=== PATIENT | female | born 1980 | race Two or more races ===

== ENCOUNTER → 2020-02-29 | Outpatient (CLI) | payer MEDICARE, OTHER ==
[~2020-02-29] MED LIST: DENOSUMAB 60 MG/ML 1 ML SYRINGE SQ NR
[2020-02-29 13:17] VITALS: BP 177/71; PULSE 89; RESP 18; TEMP 97.8
== END | disposition home or self-care (01) ==
LOC: PROCWHC3 12:50
PROVIDERS: ATTEND Family Medicine
DX: M81.0 Age-related osteoporosis without current pathological fracture (principal)
CPT/HCPCS: 96372; J0897

== ENCOUNTER → 2020-04-25 | Outpatient (CLI) | payer MEDICARE, OTHER ==
--- NOTE | 2020-05-03 10:50 | MM ---
Reason for exam: additional evaluation requested from prior study. Last mammogram was performed 2 years and 2 months ago. History: Family history of breast cancer in paternal grandmother. Benign excisional biopsy of the right breast, 1991. Took hormonal contraceptives for 9 months. Physical Findings: Nurse Summary: 2cm nodule in the left breast at 12 o'clock (nurse db). MG 3D Diag Mammo W/Cad KATIE Bilateral CC and MLO view(s) were taken. Prior study comparison: February 21, 2018, mammogram, performed at [place]. The breast tissue is heterogeneously dense. This may lower the sensitivity of mammography. Upper outer quadrant grouped and regional calcifications on both sides. Not as well seen on the lateral and magnification lateral views. These results were verbally communicated with the patient and result sheet given to the patient on 04/25/20. ASSESSMENT: Incomplete: need additional imaging evaluation, BI-RAD 0 RECOMMENDATION: Ultrasound of both breasts.
--- NOTE | 2020-05-03 10:53 | USB ---
Reason for exam: additional evaluation requested from abnormal screening. History: Family history of breast cancer in paternal grandmother. Benign excisional biopsy of the right breast, 1991. Took hormonal contraceptives for 9 months. US Breast BILAT Right complete breast ultrasound includes all four quadrants, the retroareolar region and axilla. Finding demonstrates a 0.5 x 0.3 x 0.4cm oval, cystic lesion at 8 o'clock, a 0.3 x 0.3 x 0.2cm oval, cystic lesion at 11 o'clock and a 0.2 x 0.2 x 0.2cm oval, cystic lesion at 12 o'clock. Left complete breast ultrasound includes all four quadrants, the retroareolar region and axilla. Finding demonstrates a 0.3 x 0.3 x 0.3cm oval, cystic lesion at 1 o'clock and a 0.6 x 0.6 x 0.3cm oval, cystic lesion at 3 o'clock. These results were verbally communicated with the patient and result sheet given to the patient on 04/25/20. ASSESSMENT: Benign, BI-RAD 2 RECOMMENDATION: Follow-up diagnostic mammogram of both breasts in 6 months. Manage patient on a clinical basis.
== END | disposition home or self-care (01) ==
LOC: RADMAMWWP 07:20
PROVIDERS: ATTEND Family Medicine
DX: R92.8 Other abnormal and inconclusive findings on diagnostic imaging of breast (principal); Z80.3 Family history of malignant neoplasm of breast
CPT/HCPCS: 77066; 76641; G0279; 77062

== ENCOUNTER 2020-08-25 14:24 | Inpatient (IN) | payer MEDICARE, OTHER ==
[2020-08-25] MEDS ORDERED: SODIUM CHLORIDE 0.9% 1,000 ML IV STA (15:49)
--- NOTE | 2020-08-25 16:25 | ED ---
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 She has a history of both a renal transplant as well as a pancreatic transplant. Saw she also has a history of chronic pain. She is on antirejection medications including tacrolimus. She presents emergency Department complaining of a three-day history of abdominal pain over the site of her renal transplant and suprapubically that she describes as an achy, sharp sensation. Chest discomfort some dysuria as well as hematuria over that time. She denies any vaginal discharge and does not believe that the blood is coming from her vagina either. She denies any diarrhea. Denies any nausea or vomiting. Denies any chest pain, shortness breath. Denies any lightheadedness or weakness. She has no other acute complaints at this time. She is concerned for her renal transplant. [place] - Related Data Home Medications Medication Instructions Recorded Confirmed Aspirin EC [Ecotrin Low Dose] 81 mg PO DAILY 02/29/20 08/25/20 Ergocalciferol (Vitamin D2) 50,000 units PO TH 02/29/20 08/25/20 [Vitamin D2 (50,000 units)] Rosuvastatin [Crestor] 20 mg PO DAILY 02/29/20 08/25/20 Tacrolimus [Envarsus Xr] 3 mg PO DAILY 02/29/20 08/25/20 predniSONE 5 mg PO DAILY 02/29/20 08/25/20 Clotrimazole Cream [Lotrimin Cream] 1 applic TOPICAL DAILY 08/25/20 08/25/20 Denosumab [Prolia] 60 mg SQ Q180D 08/25/20 08/25/20 Famotidine [Pepcid] 20 mg PO BID 08/25/20 08/25/20 Indomethacin [Indocin] 50 mg PO BID 08/25/20 08/25/20 Medroxyprogesterone Acetate 150 mg IM Q84D 08/25/20 08/25/20 [Depo-Provera] Metoprolol Succinate [Toprol XL] 50 mg PO DAILY 08/25/20 08/25/20 Vasepa 1gm 2 gm PO BID 08/25/20 08/25/20 amLODIPine [Norvasc] 5 mg PO DAILY 08/25/20 08/25/20 medroxyPROGESTERone [Provera] 10 mg PO DAILY 08/25/20 08/25/20 Allergies Allergy/AdvReac Type Severity Reaction Status Date / Time ketamine Allergy Anaphylaxis Verified 08/25/20 17:27 lisinopril Allergy Swelling Verified 08/25/20 17:27 sulfamethoxazole AdvReac Unknown Verified 08/25/20 17:27 [From Bactrim] trimethoprim [From Bactrim] AdvReac Unknown Verified 08/25/20 17:27 Review of Systems ROS Statement: Those systems with pertinent positive or pertinent negative responses have been documented in the HPI. Review of Systems: CONST: Denies fever EYES: Denies blurry vision ENT: Denies nasal congestion C/V: Denies Chest pain RESP: Denies shortness of breath GI: Endorses abdominal pain : Endorses dysuria SKIN: Denies rash. MSK: Denies joint pain. NEURO: Denies headache ROS Other: All systems not noted in ROS Statement are negative. Past Medical History Past Medical History: Heart Failure, Dialysis, Eye Disorder, Hyperlipidemia, Hypertension, Renal Disease Additional Past Medical History / Comment(s): osteoporosis History of Any Multi-Drug Resistant Organisms: None Reported Past Surgical History: Appendectomy, Section, Coronary Bypass/CABG, Tubal Ligation Additional Past Surgical History / Comment(s): kidney transplant/cataract surg/fistula with stent placement-rt arm Past Anesthesia/Blood Transfusion Reactions: No Reported Reaction Past Psychological History: No Psychological Hx Reported Smoking Status: Former smoker Past Alcohol Use History: None Reported Past Drug Use History: None Reported - Past Family History Father Family Medical History: Coronary Artery Disease (CAD), Respiratory Disorder General Exam - General Exam Comments Initial Comments: General: Appears in no acute distress. HEAD: Normal with no signs of head trauma. EYES: PERRLA, EOMI, conjunctiva normal, no discharge. ENT: Hearing grossly intact, normal oropharynx. RESPIRATORY: Clear breath sounds bilaterally. No wheezes, rales, or rhonchi. C/V: Regular rate and rhythm. S1 and S2 auscultated, no edema, peripheral pulses 2+ and intact throughout ABD: Abdomen is soft, nondistended. Patient is tender to palpation suprapubic region as well as over her transplanted kidney in the right lower abdomen. There is no guarding. There are no peritoneal signs. EXT: Normal range of motion, no obvious deformity SKIN: No rashes or lesions observed on exposed skin. NEURO: Alert and oriented 4. Limitations: no limitations Course Vital Signs 08/25/20 08/25/20 14:34 19:53 Temperature 98.3 F Pulse Rate 77 75 Respiratory 20 16 Rate Blood Pressure 122/70 140/73 O2 Sat by Pulse 97 99 Oximetry Medical Decision Making - Medical Decision Making Based on the patient's presentation and physical exam, I'm concerned for possible UTI or kidney infection. Patient is still making good urine and therefore I am less concerned for possible renal transplant rejection or pancreas transplant rejection, however cannot rule this out at that time. Therefore broad laboratory studies will be obtained including blood cultures, electrolytes, urinalysis. She will be given a 1 L fluid bolus while she is in the department. She refuses any analgesia at this time. She was in agreement with this plan. Patient's laboratory studies are remarkable for mild leukocytosis of 12.2. Blood cultures are still pending. Electrolytes are relatively unremarkable. Patient's urinalysis is concerning for an infection with bacteria present as well as many wbc's and rbc's. Nitrates are positive as are leukocyte esterase. I spoke with the patient, that I believe this is likely not a rejection and may just be a kidney infection versus UTI, however due to her transplant and history as well as her immunocompromised state, we will admit her to the hospital for IV antibiotics. She was in agreement with this plan. I spoke with the admitting physician, Dr. Russo, who was in agreement with this plan. I consult the infectious disease doctor, Dr. Mac, who recommended we start 2 g cefepime every 8 hours for treatment. This was ordered. She'll be admitted to the hospital for IV antibiotics in serious condition. Transplanted kidney US is still pending at this time. - Lab Data Result diagrams: 08/25/20 16:00 08/25/20 16:00 Lab Results 08/25/20 08/25/20 08/25/20 Range/Units 16:00 16:00 16:00 WBC 12.2 H (3.8-10.6) k/uL RBC 4.48 (3.80-5.40) m/uL Hgb 14.2 (11.4-16.0) gm/dL Hct 41.7 (34.0-46.0) % MCV 92.9 (80.0-100.0) fL MCH 31.6 (25.0-35.0) pg MCHC 34.0 (31.0-37.0) g/dL RDW 13.1 (11.5-15.5) % Plt Count 157 (150-450) k/uL MPV 7.3 Neutrophils % 90 % Lymphocytes % 3 % Monocytes % 5 % Eosinophils % 1 % Basophils % 0 % Neutrophils # 11.0 H (1.3-7.7) k/uL Lymphocytes # 0.4 L (1.0-4.8) k/uL Monocytes # 0.6 (0-1.0) k/uL Eosinophils # 0.1 (0-0.7) k/uL Basophils # 0.0 (0-0.2) k/uL PT 10.4 (9.0-12.0) sec INR 1.0 (<1.2) APTT 19.1 L (22.0-30.0) sec Sodium (137-145) mmol/L Potassium (3.5-5.1) mmol/L Chloride (98-107) mmol/L Carbon Dioxide (22-30) mmol/L Anion Gap mmol/L BUN (7-17) mg/dL Creatinine (0.52-1.04) mg/dL Est GFR (CKD-EPI)AfAm (>60 ml/min/1.73 sqM) Est GFR (CKD-EPI)NonAf (>60 ml/min/1.73 sqM) Glucose (74-99) mg/dL Plasma Lactic Acid Allan (0.7-2.0) mmol/L Calcium (8.4-10.2) mg/dL Total Bilirubin (0.2-1.3) mg/dL AST (14-36) U/L ALT (4-34) U/L Alkaline Phosphatase (38-126) U/L Total Protein (6.3-8.2) g/dL Albumin (3.5-5.0) g/dL Amylase (30-110) U/L Lipase (23-300) U/L Urine Color Yellow Urine Appearance Cloudy H (Clear) Urine pH 6.0 (5.0-8.0) Ur Specific [place] 1.018 (1.001-1.035) Urine Protein 1+ H (Negative) Urine Glucose (UA) Negative (Negative) Urine Ketones Negative (Negative) Urine Blood Large H (Negative) Urine Nitrite Positive H (Negative) Urine Bilirubin Negative (Negative) Urine Urobilinogen <2.0 (<2.0) mg/dL Ur Leukocyte Esterase Large H (Negative) Urine RBC >182 H (0-5) /hpf Urine WBC >182 H (0-5) /hpf Urine WBC Clumps Many H (None) /hpf Ur Squamous Epith Cells 1 (0-4) /hpf Urine Bacteria Moderate H (None) /hpf Urine Mucus Many H (None) /hpf Urine HCG, Qual (Not Detectd) Blood Type Blood Type Confirm Blood Type Recheck Bld Type Recheck Status Antibody Screen Spec Expiration Date 08/25/20 08/25/20 08/25/20 Range/Units 16:00 16:00 16:00 WBC (3.8-10.6) k/uL RBC (3.80-5.40) m/uL Hgb (11.4-16.0) gm/dL Hct (34.0-46.0) % MCV (80.0-100.0) fL MCH (25.0-35.0) pg MCHC (31.0-37.0) g/dL RDW (11.5-15.5) % Plt Count (150-450) k/uL MPV Neutrophils % % Lymphocytes % % Monocytes % % Eosinophils % % Basophils % % Neutrophils # (1.3-7.7) k/uL Lymphocytes # (1.0-4.8) k/uL Monocytes # (0-1.0) k/uL Eosinophils # (0-0.7) k/uL Basophils # (0-0.2) k/uL PT (9.0-12.0) sec INR (<1.2) APTT (22.0-30.0) sec Sodium 139 (137-145) mmol/L Potassium 4.8 (3.5-5.1) mmol/L Chloride 111 H (98-107) mmol/L Carbon Dioxide 19 L (22-30) mmol/L Anion Gap 9 mmol/L BUN 20 H (7-17) mg/dL Creatinine 0.73 (0.52-1.04) mg/dL Est GFR (CKD-EPI)AfAm >90 (>60 ml/min/1.73 sqM) Est GFR (CKD-EPI)NonAf >90 (>60 ml/min/1.73 sqM) Glucose 113 H (74-99) mg/dL Plasma Lactic Acid Allan (0.7-2.0) mmol/L Calcium 9.4 (8.4-10.2) mg/dL Total Bilirubin 2.3 H (0.2-1.3) mg/dL AST 20 (14-36) U/L ALT 14 (4-34) U/L Alkaline Phosphatase 50 (38-126) U/L Total Protein 6.9 (6.3-8.2) g/dL Albumin 4.0 (3.5-5.0) g/dL Amylase 42 (30-110) U/L Lipase 42 (23-300) U/L Urine Color Urine Appearance (Clear) Urine pH (5.0-8.0) Ur Specific [place] (1.001-1.035) Urine Protein (Negative) Urine Glucose (UA) (Negative) Urine Ketones (Negative) Urine Blood (Negative) Urine Nitrite (Negative) Urine Bilirubin (Negative) Urine Urobilinogen (<2.0) mg/dL Ur Leukocyte Esterase (Negative) Urine RBC (0-5) /hpf Urine WBC (0-5) /hpf Urine WBC Clumps (None) /hpf Ur Squamous Epith Cells (0-4) /hpf Urine Bacteria (None) /hpf Urine Mucus (None) /hpf Urine HCG, Qual Not Detected (Not Detectd) Blood Type Blood Type Confirm A Positive Blood Type Recheck Bld Type Recheck Status Antibody Screen Spec Expiration Date 08/25/20 08/25/20 Range/Units 17:29 17:36 WBC (3.8-10.6) k/uL RBC (3.80-5.40) m/uL Hgb (11.4-16.0) gm/dL Hct (34.0-46.0) % MCV (80.0-100.0) fL MCH (25.0-35.0) pg MCHC (31.0-37.0) g/dL RDW (11.5-15.5) % Plt Count (150-450) k/uL MPV Neutrophils % % Lymphocytes % % Monocytes % % Eosinophils % % Basophils % % Neutrophils # (1.3-7.7) k/uL Lymphocytes # (1.0-4.8) k/uL Monocytes # (0-1.0) k/uL Eosinophils # (0-0.7) k/uL Basophils # (0-0.2) k/uL PT (9.0-12.0) sec INR (<1.2) APTT (22.0-30.0) sec Sodium (137-145) mmol/L Potassium (3.5-5.1) mmol/L Chloride (98-107) mmol/L Carbon Dioxide (22-30) mmol/L Anion Gap mmol/L BUN (7-17) mg/dL Creatinine (0.52-1.04) mg/dL Est GFR (CKD-EPI)AfAm (>60 ml/min/1.73 sqM) Est GFR (CKD-EPI)NonAf (>60 ml/min/1.73 sqM) Glucose (74-99) mg/dL Plasma Lactic Acid Allan 0.8 (0.7-2.0) mmol/L Calcium (8.4-10.2) mg/dL Total Bilirubin (0.2-1.3) mg/dL AST (14-36) U/L ALT (4-34) U/L Alkaline Phosphatase (38-126) U/L Total Protein (6.3-8.2) g/dL Albumin (3.5-5.0) g/dL Amylase (30-110) U/L Lipase (23-300) U/L Urine Color Urine Appearance (Clear) Urine pH (5.0-8.0) Ur Specific [place] (1.001-1.035) Urine Protein (Negative) Urine Glucose (UA) (Negative) Urine Ketones (Negative) Urine Blood (Negative) Urine Nitrite (Negative) Urine Bilirubin (Negative) Urine Urobilinogen (<2.0) mg/dL Ur Leukocyte Esterase (Negative) Urine RBC (0-5) /hpf Urine WBC (0-5) /hpf Urine WBC Clumps (None) /hpf Ur Squamous Epith Cells (0-4) /hpf Urine Bacteria (None) /hpf Urine Mucus (None) /hpf Urine HCG, Qual (Not Detectd) Blood Type A Positive Blood Type Confirm Blood Type Recheck No Previous Record Bld Type Recheck Status CABO Indicated Antibody Screen NEGATIVE Spec Expiration Date 08/28/2020 - 2348 Disposition Clinical Impression: Kidney infection, UTI (urinary tract infection), History of renal transplant, History of pancreas transplant, Abdominal pain Disposition: ADMITTED IP TO THIS HOSP Condition: Serious
[2020-08-25 16:34] LABS: Basophils % (A) 0 %; Eosinophils # (A) 0.1 k/uL (0-0.7); Eosinophils % (A) 1 %; HCT 41.7 % (34.0-46.0); HGB 14.2 gm/dL (11.4-16.0); Lymphocytes # (A) 0.4 k/uL (1.0-4.8); Lymphocytes % (A) 3 %; MCH 31.6 pg (25.0-35.0); MCV 92.9 fL (80.0-100.0); Mean Platelet Volume 7.3; Monocytes # (A) 0.6 k/uL (0-1.0); Monocytes % (A) 5 %; Neutrophils % (A) 90 %; Platelet Count 157 k/uL (150-450); RBC 4.48 m/uL (3.80-5.40); RDW 13.1 % (11.5-15.5); WBC 12.2 k/uL (3.8-10.6)
[2020-08-25 16:36] LABS: Appearance,Urine Cloudy (Clear); Bacteria,Urine Moderate /hpf; Bilirubin,Urine Negative (Negative); Blood,Urine Large (Negative); Color,Urine Yellow; Glucose,Urine (UA) Negative (Negative); Ketones,Urine Negative (Negative); Leukocyte Esterase,Urine Large (Negative); Mucus,Urine Many /hpf; Nitrite,Urine Positive (Negative); Protein,Urine 1+ (Negative); RBC,Urine >182 /hpf (0-5); Specific Gravity,Urine 1.018 (1.001-1.035); Squamous Epithelial Cell,Urine 1 /hpf (0-4); Urobilinogen,Urine <2.0 mg/dL (<2.0); WBC,Urine >182 /hpf (0-5)
--- NOTE | 2020-08-25 16:41 | XR ---
EXAMINATION TYPE: XR chest 1V portable DATE OF EXAM: 08/25/2020 COMPARISON: NONE HISTORY: Abdominal pain. Heart failure. TECHNIQUE: Single view FINDINGS: There is no heart failure nor confluent pneumonic infiltrate. Heart size is fairly normal. There are sternal wires. Costophrenic angles are clear. IMPRESSION: No active cardiopulmonary disease. Normal heart. No heart failure seen.
[2020-08-25 16:47] LABS: ALT 14 U/L (4-34); AST 20 U/L (14-36); African American GFR (CKD) >90 (>60 ml/min/1.73 sqM); Alkaline Phosphatase 50 U/L (38-126); Amylase 42 U/L (30-110); Anion Gap 9 mmol/L; Blood Urea Nitrogen 20 mg/dL (7-17); Calcium 9.4 mg/dL (8.4-10.2); Carbon Dioxide 19 mmol/L (22-30); Chloride 111 mmol/L (98-107); Glucose 113 mg/dL (74-99); Lipase 42 U/L (23-300); Non-African American GFR(CKD) >90 (>60 ml/min/1.73 sqM); Potassium 4.8 mmol/L (3.5-5.1); Sodium 139 mmol/L (137-145); Total Bilirubin 2.3 mg/dL (0.2-1.3); Total Protein 6.9 g/dL (6.3-8.2)
[2020-08-25 16:51] LABS: Prothrombin Time 10.4 sec (9.0-12.0)
[2020-08-25 17:14] LABS: Partial Thromboplastin Time 19.1 sec (22.0-30.0)
[2020-08-25] MEDS ORDERED: SODIUM CHLORIDE 0.9% 1,000 ML IV ONE (18:38)
[2020-08-25] MEDS ORDERED: CEFEPIME 2 GM in SODIUM CHLORIDE 0.9% 100 ML IVPB STA (18:43)
[2020-08-25] MEDS ORDERED: ERGOCALCIFEROL 1,250 MCG (50,000 IU) CAPSULE PO SCH (23:00)
--- NOTE | 2020-08-25 23:09 | P.HPIM ---
History of Present Illness H&P Date: 08/25/20 Chief Complaint: abd pain 40 year old female with CAD s/p CABG, DM and ESRD s/p kidney and pancrease transplant patient comes in with 2 day history of lower abd pain and dysuria . she initially had few episodes of diarrhea on Saturday , then developed lower abd pain on Saturday . which kept getting worse and became associated with right lower quadrant abd pain , she has history of appendectomy and Kidney transplant . she started experiencing dysuria and frequent urination, with low grade fever, denies any nausea or vomiting, she continues to have loose bowel movement no bleeding. she is compliant with her antirejection meds. she denies any chest pain , trouble breathing, she denies frequent UTI. in the ED, she was found to have UTI and admitted for further care. Review of Systems Pertinent positives as noted in HPI. All other systems were reviewed and are negative Past Medical History Past Medical History: Heart Failure, Dialysis, Eye Disorder, Hyperlipidemia, Hypertension, Renal Disease Additional Past Medical History / Comment(s): osteoporosis; diabetes Type 1 History of Any Multi-Drug Resistant Organisms: None Reported Past Surgical History: Appendectomy, Section, Coronary Bypass/CABG, Tubal Ligation Additional Past Surgical History / Comment(s): kidney transplant/cataract surg/fistula with stent placement-rt arm; pancreas transplant Past Anesthesia/Blood Transfusion Reactions: No Reported Reaction Past Psychological History: No Psychological Hx Reported Smoking Status: Former smoker Past Alcohol Use History: None Reported Past Drug Use History: None Reported - Past Family History Father Family Medical History: Coronary Artery Disease (CAD), Respiratory Disorder Medications and Allergies Home Medications Medication Instructions Recorded Confirmed Type Aspirin EC [Ecotrin Low Dose] 81 mg PO DAILY 02/29/20 08/25/20 History Ergocalciferol (Vitamin D2) 50,000 units PO TH 02/29/20 08/25/20 History [Vitamin D2 (50,000 units)] Rosuvastatin [Crestor] 20 mg PO DAILY 02/29/20 08/25/20 History Tacrolimus [Envarsus Xr] 3 mg PO DAILY 02/29/20 08/25/20 History predniSONE 5 mg PO DAILY 02/29/20 08/25/20 History Clotrimazole Cream [Lotrimin Cream] 1 applic TOPICAL DAILY 08/25/20 08/25/20 History Denosumab [Prolia] 60 mg SQ Q180D 08/25/20 08/25/20 History Famotidine [Pepcid] 20 mg PO BID 08/25/20 08/25/20 History Indomethacin [Indocin] 50 mg PO BID 08/25/20 08/25/20 History Medroxyprogesterone Acetate 150 mg IM Q84D 08/25/20 08/25/20 History [Depo-Provera] Metoprolol Succinate [Toprol XL] 50 mg PO DAILY 08/25/20 08/25/20 History Vasepa 1gm 2 gm PO BID 08/25/20 08/25/20 History amLODIPine [Norvasc] 5 mg PO DAILY 08/25/20 08/25/20 History medroxyPROGESTERone [Provera] 10 mg PO DAILY 08/25/20 08/25/20 History Allergies Allergy/AdvReac Type Severity Reaction Status Date / Time ketamine Allergy Anaphylaxis Verified 08/25/20 17:27 lisinopril Allergy Swelling Verified 08/25/20 17:27 sulfamethoxazole AdvReac Unknown Verified 08/25/20 17:27 [From Bactrim] trimethoprim [From Bactrim] AdvReac Unknown Verified 08/25/20 17:27 Physical Exam Vitals: Vital Signs Temp Pulse Pulse Resp BP BP Pulse Ox 08/25/20 20:09 98.7 F 77 18 113/70 100 08/25/20 19:53 75 16 140/73 99 08/25/20 14:34 98.3 F 77 20 122/70 97 Intake and Output 08/25/20 08/25/20 08/26/20 14:59 22:59 06:59 Other: Weight 72.575 kg 72.575 kg Constitutional: No acute distress, conversant, pleasant Eyes: Anicteric sclerae, moist conjunctiva, Pupils equal round reactive to light ENMT: NC/AT Oropharynx clear, no erythema, or exudates Neck: Supple, FROM, no masses, or JVD No carotid bruits No thyromegaly Lungs: Clear to auscultation Clear to percussion Normal respiratory effort, no accessory muscle use Cardiovascular: Heart regular in rate and rhythm, No murmurs, gallops, or rubs No peripheral edema Abdominal: Soft Some discomfort to deep palpation over the right lower quadrant, no guarding, rebound or rigidity Abdomen moving with respiration Normoactive bowel sounds No hepatomegaly, No splenomegaly No palpable mass No abdominal wall hernia noted Skin: Normal temperature, tone, texture, turgor No induration No subcutaneous nodules No rash, lesions No ulcers Extremities: Palpable thrill over the right arm AV fistula Muscle wasting of the No digital cyanosis No clubbing Pedal pulses intact and symmetrical Radial pulses intact and symmetrical No calf tenderness Psychiatric: Alert and oriented to person, place and time Appropriate affect fair judgement Neuro Muscles Strength 5/5 in all 4 extremities with weakness over the distal muscle group of left lower extremity with limited range of motion over th e left ankle Sensation to light touch grossly present throughout Cranial nerves II-XII grossly intact No focal sensory deficits Lymphatics: no palpable cervical or supraclavicular , or inguinal lymph nodes Results CBC & Chem 7: 08/25/20 16:00 08/25/20 16:00 Labs: Abnormal Lab Results - Last 24 Hours (Table) 08/25/20 08/25/20 08/25/20 Range/Units 16:00 16:00 16:00 WBC 12.2 H (3.8-10.6) k/uL Neutrophils # 11.0 H (1.3-7.7) k/uL Lymphocytes # 0.4 L (1.0-4.8) k/uL APTT 19.1 L (22.0-30.0) sec Chloride (98-107) mmol/L Carbon Dioxide (22-30) mmol/L BUN (7-17) mg/dL Glucose (74-99) mg/dL Total Bilirubin (0.2-1.3) mg/dL Urine Appearance Cloudy H (Clear) Urine Protein 1+ H (Negative) Urine Blood Large H (Negative) Urine Nitrite Positive H (Negative) Ur Leukocyte Esterase Large H (Negative) Urine RBC >182 H (0-5) /hpf Urine WBC >182 H (0-5) /hpf Urine WBC Clumps Many H (None) /hpf Urine Bacteria Moderate H (None) /hpf Urine Mucus Many H (None) /hpf 08/25/20 Range/Units 16:00 WBC (3.8-10.6) k/uL Neutrophils # (1.3-7.7) k/uL Lymphocytes # (1.0-4.8) k/uL APTT (22.0-30.0) sec Chloride 111 H (98-107) mmol/L Carbon Dioxide 19 L (22-30) mmol/L BUN 20 H (7-17) mg/dL Glucose 113 H (74-99) mg/dL Total Bilirubin 2.3 H (0.2-1.3) mg/dL Urine Appearance (Clear) Urine Protein (Negative) Urine Blood (Negative) Urine Nitrite (Negative) Ur Leukocyte Esterase (Negative) Urine RBC (0-5) /hpf Urine WBC (0-5) /hpf Urine WBC Clumps (None) /hpf Urine Bacteria (None) /hpf Urine Mucus (None) /hpf Assessment and Plan Assessment: UTI 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 Status post kidney and pancreatic transplant History of coronary artery disease status post CABG Attention Plan Follow-up cultures Nephrology consult regarding recommendation of antirejection medications Continue prednisone Hold tacrolimus, check levels in the morning, await nephrology recommendations Monitor renal function ID consultation, patient was started on cefepime IV fluid hydration with normal saline Pain control Avoid nephrotoxic meds CODE STATUS: Full code DVT prophylaxis: [email or web address] Discussed with: Patient, ER, RN Anticipated length of stay > than [address]: Home A total of 75 minutes was spent on the care of this complex patient more than 50% of the time was spent in counseling and care coordination.
[2020-08-26] MEDS: CEFEPIME 2 GM in SODIUM CHLORIDE 0.9% 100 ML IVPB SCH ×3 (03:13→19:42)
[2020-08-26] MEDS: ACETAMINOPHEN TAB 325 MG TAB PO PRN ×2 (03:15→14:08)
[2020-08-26] MEDS ORDERED: LOPERAMIDE 2 MG CAP PO PRN (03:31)
[2020-08-26] MEDS: ONDANSETRON 4 MG/2 ML VIAL IVP PRN ×2 (03:57→19:43)
--- NOTE | 2020-08-26 09:30 | US ---
EXAMINATION TYPE: US renal transplant w dop DATE OF EXAM: 08/26/2020 COMPARISON: NONE CLINICAL HISTORY: Possible infection. Possible UTI EXAM PERFORMED: Grayscale on [facility] kidneys and Doppler duplex and Grayscale imaging of the transplan [place] kidney. EXAM MEASUREMENTS: [place] Right Kidney: 9.0 x 4.0 x 4.0 cm [place] Left Kidney: 9.3 x 4.5 x 3.8 cm Transplant Kidney: 14.4 x 5.9 x 5.3 cm Location of transplanted kidney: RLQ ANATOMY: [place] Right Kidney: Cortical thinning [place] Left Kidney: Cortical thinning Transplant Kidney: Appeared wnl, no evidence of hydro, venous and arterial flow visualized within ki dney and appeared wnl Bladder: wnl Bilateral Jets seen: No IMPRESSION: No evidence of hydronephrosis or nephrolithiasis. No abnormal perinephric fluid collections. [place] k idneys demonstrate findings compatible with chronic medical renal disease.
[2020-08-26 09:31] LABS: Basophils # (A) 0.02 X 10*3/uL (0.00-0.10); Basophils % (A) 0.2 %; Eosinophils # (A) 0.05 X 10*3/uL (0.04-0.35); Eosinophils % (A) 0.4 %; HCT 35.7 % (37.2-46.3); HGB 11.2 g/dL (12.0-15.0); Lymphocytes # (A) 0.45 X 10*3/uL (0.90-5.00); Lymphocytes % (A) 3.9 %; MCH 29.9 pg (27.0-32.0); MCHC 31.4 g/dL (32.0-37.0); MCV 95.5 fL (80.0-97.0); Mean Platelet Volume 10.1 fL (9.5-12.2); Monocytes # (A) 0.78 X 10*3/uL (0.20-1.00); Monocytes % (A) 6.8 %; Neutrophils # (A) 10.09 X 10*3/uL (1.80-7.70); Neutrophils % (A) 88.1 %; Platelet Count 189 X 10*3/uL (140-440); RBC 3.74 X 10*6/uL (4.10-5.20); RDW 13.3 % (11.5-14.5); WBC 11.46 X 10*3/uL (4.50-10.00)
[2020-08-26 09:49] LABS: African American GFR (CKD) 106.9 (60.0-200.0); Albumin 3.6 g/dL (3.80-4.90); Albumin/Globulin Ratio 1.64 (1.60-3.17); Anion Gap 7.2 mmol/L (4.00-12.00); BUN/Creat Ratio 27.5 Ratio (12.00-20.00); Calcium 8.4 mg/dL (8.7-10.3); Carbon Dioxide 17.8 mmol/L (21.6-31.8); Globulin 2.2 g/dL (1.6-3.3); Non-African American GFR(CKD) 92.2 (60.0-200.0); Potassium 4.4 mmol/L (3.5-5.5); Total Bilirubin 1.5 mg/dL (0.2-1.2); Total Protein 5.8 g/dL (6.2-8.2)
[2020-08-26] MEDS: ENOXAPARIN 40 MG/0.4 ML SYRINGE SQ SCH (10:04)
[2020-08-26] MEDS: METOPROLOL SUCCINATE (ER) 50 MG TAB.ER.24H PO SCH (10:05)
[2020-08-26] MEDS: amLODIPine 5 MG TAB PO SCH (10:05)
[2020-08-26] MEDS: predniSONE 5 MG TAB PO SCH (10:05)
[2020-08-26] MEDS: ASPIRIN 81 MG PO SCH (10:05)
[2020-08-26] MEDS: ATORVASTATIN 40 MG TAB PO SCH (10:05)
[2020-08-26] MEDS: FAMOTIDINE 20 MG TAB PO SCH ×2 (10:05→19:43)
[2020-08-26] MEDS: medroxyPROGESTERone 10 MG TABLET PO SCH (11:40)
[2020-08-26] MEDS: NON FORMULARY DRUG (Tacrolimus [Envarsus Xr] 1 MG Tab.Er.24h) PO SCH (13:06)
[2020-08-26] MEDS: LACTATED RINGERS 1,000 ML IV SCH (14:09)
--- NOTE | 2020-08-26 14:34 | CONS ---
CONSULTATION REASON FOR CONSULT: Renal transplant. HISTORY OF PRESENT ILLNESS: Patient is a 40-year-old female with history of type 1 diabetes and end-stage renal disease, status post kidney pancreas transplant in [place] about 2 years ago. The patient was admitted to the hospital with complaints of abdominal pain. She denied any fever. She is noticed to have a urinary tract infection and is currently maintained on antibiotics. She is not aware of her baseline renal function. However, her creatinine is at 0.7 mg/dL. Serum glucose was 103. Patient is maintained on Envarsus, which is tacrolimus along with prednisone. She has history of BK virus infection in the past. Patient did admit to history of diarrhea a few days prior to this urinary tract infection. She denies history of repeated urinary tract infections. PAST MEDICAL HISTORY: Type 1 diabetes, history of end-stage renal disease. Patient had been on hemodialysis for about 2-3 years, hyperlipidemia, CKD mineral bone disorder, currently improved. PAST SURGICAL HISTORY: Appendectomy, , coronary artery bypass surgery, tubal ligation, kidney pancreas transplant, cataract surgery, AV fistula in the right arm. SOCIAL HISTORY: Patient is a former smoker. No history of drug abuse or alcohol abuse. MEDICATIONS: Medications at home included: Aspirin, vitamin D2, Crestor, Envarsus, prednisone, Prolia, Pepcid, Indocin, Depo-Provera, Toprol, Norvasc. ALLERGIES: INCLUDE KETAMINE CAUSES ANAPHYLAXIS, LISINOPRIL, BACTRIM. PHYSICAL EXAMINATION: Patient is currently comfortable, awake, not in any acute distress. Alert, oriented x3. Blood pressure 149/68, heart rate 88 per minute. She is afebrile. Examination of the heart S1, S2. Examination of the lungs, bilateral breath sounds are heard. Abdomen is soft, nontender. Examination lower extremities shows no evidence of edema. She did have a temperature of 100.6 degrees Fahrenheit. [employer] exam grossly intact. LAB: Show sodium of 139, potassium 4.4, chloride is 114, CO2 is 17.8, BUN 22, creatinine 0.8. ASSESSMENT: 1. Status post simultaneous kidney pancreas transplant maintained on Prograf and prednisone. Continue current immunosuppressive medications. 2. Metabolic acidosis associated with IV fluids and use of Prograf, switch IV fluids to Ringer lactate and repeat labs in a.m. 3. Urinary tract infection. Urine culture is pending. Patient is maintained on empiric antibiotics. 4. Type 1 diabetes status post kidney pancreas transplant. PLAN: Continue current immunosuppressive medications. Continue IV fluids. Continue antibiotics and change the IV fluids to Ringer lactate. Thank you for this consultation. We will continue to follow the patient with you during her hospitalization. MARGARITA / SURJIT: [id number] /
--- NOTE | 2020-08-26 17:53 | P.PN ---
Subjective Progress Note Date: 08/26/20 (delayed charges seen at 1030) Principal diagnosis: dysuria Patient is a 40-year-old female status post pancreatic and kidney transplant secondary to type 1 diabetes and renal failure, hypertension, dyslipidemia, and coronary artery disease status post triple vessel bypass who presented to the hospital at the direction of her primary care provider for urinary tract infection symptoms. In the ER her urine was positive for blood, nitrate, red blood cells, and white blood cells. She was noted to have white blood cell count of 12.2, carbon dioxide 19 with a negative anion gap. She was started on Rocephin and admitted for pyelonephritis. She then spiked a fever of 100.6 consistent with sepsis. Nephrology was consulted, Renal ultrasound showed transplanted kidney within normla limits Patient seen and examined at bedside. She reports she had her transplant approximately 2 years ago and has been doing well since. Her transplant was placed in [place]. She has been seen at [facility] nephrology 2 times. She reports no difficulty with her antirejection medications in the past. Now she reports some dysuria, abdominal pain near her graft site, and just not feeling well. General: Ill appearing , no distress, appears at stated age Derm: warm, dry Head: atraumatic, normocephalic, symmetric Eyes: EOMI, no lid lag, anicteric sclera Mouth: no lip lesion, mucus membranes moist Cardiovascular: S1S2 tachy, no murmur, positive posterior tibial pulse bilateral, Lungs: CTA bilateral, no rhonchi, no rales , no accessory muscle use Abdominal: soft, +tender to palpation RLQ, no guarding, no appreciable organomegaly Ext: no gross muscle atrophy, no edema, no contractures Neuro: CN II-XI grossly intact, no focal neuro deficits Psych: Alert, oriented, appropriate affect Acute pyelonephritis with sepsis in an immune compromised patient - rocephin - IVF - Await urine culture S/p pancreas and kidney transplant - nephrology recs - maintain prograft and prednisone Metabolic acidosis - IV fluids transitioned to LR per nephrology - repeat labs in AM Hx of DM 1 s/p pancrease transplant. DVT prophylaxis: SCDs Discussed with: patients, nursing Anticipated discharge: in AM, once culture available Anticipated discharge place: home A total of 45 minutes was spent on the care of this complex patient more than 50% of the time was spent in counseling and care coordination. Objective - Vital Signs Vital signs: Vital Signs Temp 98.3 F 08/26/20 14:52 Pulse 79 08/26/20 14:52 Resp 17 08/26/20 14:52 BP 118/65 08/26/20 14:52 Pulse Ox 98 08/26/20 14:52 Intake & Output 08/25/20 08/26/20 08/26/20 18:59 06:59 18:59 Intake Total 950 416 Output Total 3 Balance 947 416 Weight 72.575 kg 72.575 kg Intake: Intake, IV Titration 950 Amount Cefepime 2 gm In Sodium 100 Chloride 0.9% 100 ml @ 200 mls/hr IVPB ONCE STA Rx#:[id number] Cefepime 2 gm In Sodium 100 Chloride 0.9% 100 ml @ 200 mls/hr IVPB Q8H [facility] Rx#:[id number] Sodium Chloride 0.9% 1, 750 000 ml @ 75 mls/hr IV . [id number] ONE Rx#:[id number] Oral 416 Output: Urine 3 Other: Voiding Method Toilet Toilet # Voids 1 4 # Bowel Movements 1 - Labs CBC & Chem 7: 08/26/20 03:35 08/26/20 03:35 Labs: Abnormal Lab Results - Last 24 Hours (Table) 08/26/20 08/26/20 Range/Units 03:35 03:35 WBC 11.46 H (4.50-10.00) X 10*3/uL RBC 3.74 L (4.10-5.20) X 10*6/uL Hgb 11.2 L (12.0-15.0) g/dL Hct 35.7 L (37.2-46.3) % MCHC 31.4 L (32.0-37.0) g/dL Immature Gran # 0.07 H (0.00-0.04) X 10*3/uL Neutrophils # 10.09 H (1.80-7.70) X 10*3/uL Lymphocytes # 0.45 L (0.90-5.00) X 10*3/uL Chloride 114 H (96-109) mmol/L Carbon Dioxide 17.8 L (21.6-31.8) mmol/L BUN/Creatinine Ratio 27.50 H (12.00-20.00) Ratio Calcium 8.4 L (8.7-10.3) mg/dL Total Bilirubin 1.5 H (0.2-1.2) mg/dL Total Protein 5.8 L (6.2-8.2) g/dL Albumin 3.60 L (3.80-4.90) g/dL Microbiology - Last 24 Hours (Table) 08/25/20 16:00 Urine Culture - Preliminary Urine,Voided
[2020-08-27] MEDS: ACETAMINOPHEN TAB 325 MG TAB PO PRN ×3 (01:26→19:46)
[2020-08-27] MEDS: CEFEPIME 2 GM in SODIUM CHLORIDE 0.9% 100 ML IVPB SCH ×3 (03:05→23:52)
[2020-08-27] MEDS: LACTATED RINGERS 1,000 ML IV SCH ×2 (03:05→19:53)
[2020-08-27] MEDS: ONDANSETRON 4 MG/2 ML VIAL IVP PRN (09:27)
[2020-08-27] MEDS: FAMOTIDINE 20 MG TAB PO SCH ×2 (09:27→19:47)
[2020-08-27] MEDS: ATORVASTATIN 40 MG TAB PO SCH (09:27)
[2020-08-27] MEDS: ASPIRIN 81 MG PO SCH (09:27)
[2020-08-27] MEDS: amLODIPine 5 MG TAB PO SCH (09:27)
[2020-08-27] MEDS: predniSONE 5 MG TAB PO SCH (09:28)
[2020-08-27] MEDS: medroxyPROGESTERone 10 MG TABLET PO SCH (09:28)
[2020-08-27] MEDS: METOPROLOL SUCCINATE (ER) 50 MG TAB.ER.24H PO SCH (09:28)
[2020-08-27] MEDS: ENOXAPARIN 40 MG/0.4 ML SYRINGE SQ SCH (09:28)
[2020-08-27] MEDS: NON FORMULARY DRUG (Tacrolimus [Envarsus Xr] 1 MG Tab.Er.24h) PO SCH (09:28)
--- NOTE | 2020-08-27 10:32 | P.CONS ---
History of Present Illness - Reason for Consult Consult date: 08/26/20 Transplant nephritis Requesting physician: Buzz Saleem - Chief Complaint Abdominal pain x 3 days - History of Present Illness Patient is a 40-year-old female with a past medical history significant for end-stage renal disease in this patient who is status post cadaveric renal and pancreatic transplant done in [place] about 2 years ago, patient presented to [facility] ER yesterday for evaluation of abdominal pain in the right lower quadrant that has been going on for 2 days before presentation to the hospital patient described abdominal pain to be more of a dull aching intensity is about 5-6 out of 10 and no radiation with associated nausea but no vomiting patient abdominal pain was preceded by urinary burning or frequency in the before abdominal pain started patient complaining of fever with some chills with the symptom the patient was evaluated by the ER physician on arrival to the ER patient was afebrile subsequent spike a fever 100.6 F patient did have elevated white count of 12.2 Case was discussed with me by the ER physician patient was empirically started on cefepime pending evaluation patient did have an ultrasound of the kidneys completed this morning with no evidence of any hydronephrosis or renal stone, patient is feeling slightly better as of this morning. Review of Systems Positive point has been mentioned in the HPI rest of the systems are negative Past Medical History Past Medical History: Heart Failure, Dialysis, Eye Disorder, Hyperlipidemia, Hypertension, Renal Disease Additional Past Medical History / Comment(s): osteoporosis History of Any Multi-Drug Resistant Organisms: None Reported Past Surgical History: Appendectomy, Section, Coronary Bypass/CABG, Tubal Ligation Additional Past Surgical History / Comment(s): kidney transplant/cataract surg/fistula with stent placement-rt arm Past Anesthesia/Blood Transfusion Reactions: No Reported Reaction Past Psychological History: No Psychological Hx Reported Smoking Status: Former smoker Past Alcohol Use History: None Reported Past Drug Use History: None Reported - Past Family History Father Family Medical History: Coronary Artery Disease (CAD), Respiratory Disorder Medications and Allergies Home Medications Medication Instructions Recorded Confirmed Type Aspirin EC [Ecotrin Low Dose] 81 mg PO DAILY 02/29/20 08/25/20 History Ergocalciferol (Vitamin D2) 50,000 units PO TH 02/29/20 08/25/20 History [Vitamin D2 (50,000 units)] Rosuvastatin [Crestor] 20 mg PO DAILY 02/29/20 08/25/20 History Tacrolimus [Envarsus Xr] 3 mg PO DAILY 02/29/20 08/25/20 History predniSONE 5 mg PO DAILY 02/29/20 08/25/20 History Clotrimazole Cream [Lotrimin Cream] 1 applic TOPICAL DAILY 08/25/20 08/25/20 History Denosumab [Prolia] 60 mg SQ Q180D 08/25/20 08/25/20 History Famotidine [Pepcid] 20 mg PO BID 08/25/20 08/25/20 History Indomethacin [Indocin] 50 mg PO BID 08/25/20 08/25/20 History Medroxyprogesterone Acetate 150 mg IM Q84D 08/25/20 08/25/20 History [Depo-Provera] Metoprolol Succinate [Toprol XL] 50 mg PO DAILY 08/25/20 08/25/20 History Vasepa 1gm 2 gm PO BID 08/25/20 08/25/20 History amLODIPine [Norvasc] 5 mg PO DAILY 08/25/20 08/25/20 History medroxyPROGESTERone [Provera] 10 mg PO DAILY 08/25/20 08/25/20 History Allergies Allergy/AdvReac Type Severity Reaction Status Date / Time ketamine Allergy Anaphylaxis Verified 08/25/20 17:27 lisinopril Allergy Swelling Verified 08/25/20 17:27 sulfamethoxazole AdvReac Unknown Verified 08/25/20 17:27 [From Bactrim] trimethoprim [From Bactrim] AdvReac Unknown Verified 08/25/20 17:27 Physical Exam Vitals: Vital Signs Temp Pulse Pulse Resp BP BP Pulse Ox 08/26/20 07:00 98.3 F 76 17 127/67 97 08/26/20 01:38 100.6 F H 88 16 149/68 99 08/25/20 20:09 98.7 F 77 18 113/70 100 08/25/20 19:53 75 16 140/73 99 08/25/20 14:34 98.3 F 77 20 122/70 97 Intake and Output 08/25/20 08/26/20 08/26/20 22:59 06:59 14:59 Intake Total 950 Output Total 3 Balance 947 Intake: Intake, IV Titration 950 Amount Cefepime 2 gm In Sodium 100 Chloride 0.9% 100 ml @ 200 mls/hr IVPB ONCE STA Rx#:[id number] Cefepime 2 gm In Sodium 100 Chloride 0.9% 100 ml @ 200 mls/hr IVPB Q8H [facility] Rx#:[id number] Sodium Chloride 0.9% 1, 750 000 ml @ 75 mls/hr IV . [id number] ONE Rx#:[id number] Output: Urine 3 Other: Voiding Method Toilet Toilet # Voids 1 # Bowel Movements 1 Weight 72.575 kg GENERAL DESCRIPTION: Middle-aged female lying in bed, no distress. No tachypnea or accessory muscle of respiration use. HEENT: Shows Pallor , no scleral icterus. Oral mucous membrane is dry. No pharyngeal erythema or thrush NECK: Trachea central, no thyromegaly. LUNGS: Unlabored breathing. Clear to auscultation anteriorly. No wheeze or crackle. HEART: S1, S2, regular rate and rhythm. No loud murmur ABDOMEN: Soft, no tenderness , guarding or rigidity, no organomegaly EXTREMITIES: No edema of feet. SKIN: No rash, no masses palpable. NEUROLOGICAL: The patient is awake, alert, oriented x3, mood and affect normal. Results CBC & Chem 7: 08/26/20 03:35 08/26/20 03:35 Labs: Abnormal Lab Results - Last 24 Hours (Table) 08/25/20 08/25/20 08/25/20 Range/Units 16:00 16:00 16:00 WBC 12.2 H (3.8-10.6) k/uL RBC (4.10-5.20) X 10*6/uL Hgb (12.0-15.0) g/dL Hct (37.2-46.3) % MCHC (32.0-37.0) g/dL Immature Gran # (0.00-0.04) X 10*3/uL Neutrophils # 11.0 H (1.3-7.7) k/uL Lymphocytes # 0.4 L (1.0-4.8) k/uL APTT 19.1 L (22.0-30.0) sec Chloride (98-107) mmol/L Carbon Dioxide (22-30) mmol/L BUN (7-17) mg/dL BUN/Creatinine Ratio (12.00-20.00) Ratio Glucose (74-99) mg/dL Calcium (8.7-10.3) mg/dL Total Bilirubin (0.2-1.3) mg/dL Total Protein (6.2-8.2) g/dL Albumin (3.80-4.90) g/dL Urine Appearance Cloudy H (Clear) Urine Protein 1+ H (Negative) Urine Blood Large H (Negative) Urine Nitrite Positive H (Negative) Ur Leukocyte Esterase Large H (Negative) Urine RBC >182 H (0-5) /hpf Urine WBC >182 H (0-5) /hpf Urine WBC Clumps Many H (None) /hpf Urine Bacteria Moderate H (None) /hpf Urine Mucus Many H (None) /hpf 08/25/20 08/26/20 08/26/20 Range/Units 16:00 03:35 03:35 WBC 11.46 H (3.8-10.6) k/uL RBC 3.74 L (4.10-5.20) X 10*6/uL Hgb 11.2 L (12.0-15.0) g/dL Hct 35.7 L (37.2-46.3) % MCHC 31.4 L (32.0-37.0) g/dL Immature Gran # 0.07 H (0.00-0.04) X 10*3/uL Neutrophils # 10.09 H (1.3-7.7) k/uL Lymphocytes # 0.45 L (1.0-4.8) k/uL APTT (22.0-30.0) sec Chloride 111 H 114 H (98-107) mmol/L Carbon Dioxide 19 L 17.8 L (22-30) mmol/L BUN 20 H (7-17) mg/dL BUN/Creatinine Ratio 27.50 H (12.00-20.00) Ratio Glucose 113 H (74-99) mg/dL Calcium 8.4 L (8.7-10.3) mg/dL Total Bilirubin 2.3 H 1.5 H (0.2-1.3) mg/dL Total Protein 5.8 L (6.2-8.2) g/dL Albumin 3.60 L (3.80-4.90) g/dL Urine Appearance (Clear) Urine Protein (Negative) Urine Blood (Negative) Urine Nitrite (Negative) Ur Leukocyte Esterase (Negative) Urine RBC (0-5) /hpf Urine WBC (0-5) /hpf Urine WBC Clumps (None) /hpf Urine Bacteria (None) /hpf Urine Mucus (None) /hpf Microbiology - Last 24 Hours (Table) 08/25/20 16:00 Urine Culture - Preliminary Urine,Voided Assessment and Plan Assessment: patient presented to hospital with sepsis in this patient who did have a fever elevated white count source is likely transplant nephritis in this patient who did have a pain to the right lower abdominal area with a significantly positive UA and will need to call for the enteric gram-negative with a likely pathogen in this patient who is currently on immunosuppressive medication with concern likely for possible resistant bacteria such as Pseudomonas (1) Sepsis Current Visit: Yes Status: Acute Code(s): A41.9 - SEPSIS, UNSPECIFIED ORGANISM SNOMED Code(s): 51817443 (2) Pyelonephritis Current Visit: Yes Status: Acute Code(s): N12 - TUBULO-INTERSTITIAL NEPHRITIS, NOT SPCF ACUTE OR CHRONIC SNOMED Code(s): 47518727 Plan: 1-cefepime 2 g every 8 hours 2-gentle IV fluid We will follow on clinical condition and cultures to further adjust medication if needed Thank you for this consultation we will follow the patient along with you Time with Patient: Greater than 30
[2020-08-27 11:04] LABS: HCT 35.4 % (34.0-46.0); HGB 11.8 gm/dL (11.4-16.0); MCH 31.5 pg (25.0-35.0); MCHC 33.5 g/dL (31.0-37.0); MCV 94.2 fL (80.0-100.0); Mean Platelet Volume 7.1; Platelet Count 177 k/uL (150-450); RBC 3.76 m/uL (3.80-5.40); RDW 13.2 % (11.5-15.5); WBC 5.4 k/uL (3.8-10.6)
[2020-08-27 11:20] LABS: ALT 12 U/L (4-34); AST 17 U/L (14-36); African American GFR (CKD) >90 (>60 ml/min/1.73 sqM); Albumin 3.2 g/dL (3.5-5.0); Albumin/Globulin Ratio 1.2; Alkaline Phosphatase 42 U/L (38-126); Anion Gap 5 mmol/L; Blood Urea Nitrogen 14 mg/dL (7-17); Calcium 9.9 mg/dL (8.4-10.2); Carbon Dioxide 24 mmol/L (22-30); Chloride 111 mmol/L (98-107); Globulin 2.7 g/dL; Glucose 102 mg/dL (74-99); Non-African American GFR(CKD) >90 (>60 ml/min/1.73 sqM); Potassium 4.2 mmol/L (3.5-5.1); Sodium 140 mmol/L (137-145); Total Protein 5.9 g/dL (6.3-8.2)
--- NOTE | 2020-08-27 15:22 | US ---
EXAMINATION TYPE: US liver DATE OF EXAM: 08/27/2020 COMPARISON: US CLINICAL HISTORY: abdominal pain. RUQ pain radiating to back since recent hospitalization; pancreatic and renal transplant patient 2019 EXAM MEASUREMENTS: Liver Length: 13.8 cm Gallbladder Wall: 0.2 cm CBD: 0.9 cm Right Kidney: 8.2 x 5.0 x 3.7 cm [place] kidney (see recent US for Transplant US images and report. Pancreas: wnl Liver: wnl Gallbladder: multiple small shadowing stones noted in neck and mid gallbladder with some stone mobil ity in LLD position; however neck gallstones still seen in LLD position. Evidence for sonographic Bueno's sign: tender here CBD: abnormally dilated Right Kidney: [place] kidney noted IMPRESSION: Multiple gallstones in the gallbladder neck and in the dependent gallbladder. Large common bile duct probably related to gallbladder dysfunction. Right renal cortical atrophy.
--- NOTE | 2020-08-27 17:03 | P.PN ---
Subjective Progress Note Date: 08/27/20 (lupe charting seen at 0930) Principal diagnosis: dysuria Patient is a 40-year-old female status post pancreatic and kidney transplant secondary to type 1 diabetes and renal failure, hypertension, dyslipidemia, and coronary artery disease status post triple vessel bypass who presented to the hospital at the direction of her primary care provider for urinary tract infection symptoms. In the ER her urine was positive for blood, nitrate, red blood cells, and white blood cells. She was noted to have white blood cell count of 12.2, carbon dioxide 19 with a negative anion gap. She was started on Rocephin and admitted for pyelonephritis. She then spiked a fever of 100.6 consistent with sepsis. Nephrology was consulted, Renal ultrasound showed transplanted kidney within normal limits. Urine culture showed 100,000 gram- negative bacilli. She was seen by infectious disease who appreciated her antibiotic from Rocephin to cefepime with concerns for possible Pseudomonas. Patient seen and examined at bedside. She has developed some right upper quadr ant pain. She is not having any she was her gallbladder in the past. She this is associated with nausea and vomiting as well as not wanting to eat. General: non toxic, no distress, appears at stated age Derm: warm, dry Head: atraumatic, normocephalic, symmetric Eyes: EOMI, no lid lag, anicteric sclera Mouth: no lip lesion, mucus membranes moist Cardiovascular: S1S2 reg, no murmur, positive posterior tibial pulse bilateral, Lungs: CTA bilateral, no rhonchi, no rales , no accessory muscle use Abdominal: soft, tender to palpation right upper quadrant, tender to palpation right lower quadrant,, no guarding, no appreciable organomegaly Ext: no gross muscle atrophy, no edema, no contractures, boot over left ankle Neuro: CN II-XI grossly intact, no focal neuro deficits Psych: Alert, oriented, appropriate affect Pyelonephritis with sepsis in an immunocompromised patient - Infectious disease recommendations appreciated -Continue with cefepime -IV fluids -Await for urine culture finalized Right upper quadrant pain -Check renal ultrasound -Patient did have elevated bilirubin yesterday which has improved -Repeat CMP in a.m. Metabolic acidosis, improved -Secondary to tacrolimus - repeat labs in AM History of renal transplant -Nephrology recommendations -maintain prograft and prednisone Chronic: Diabetes mellitus type 1 status post pancreatic transplant no longer requiring insulin therapy Left Charcot foot Objective - Vital Signs Vital signs: Vital Signs Temp 98.4 F 08/27/20 15:00 Pulse 73 08/27/20 15:00 Resp 16 08/27/20 15:00 BP 116/71 08/27/20 15:00 Pulse Ox 99 08/27/20 15:00 Intake & Output 08/26/20 08/27/20 08/27/20 18:59 06:59 18:59 Intake Total 416 Balance 416 Intake: Oral 416 Other: Voiding Method Toilet Toilet Toilet # Voids 4 1 3 - Labs CBC & Chem 7: 08/27/20 10:30 08/27/20 10:30 Labs: Abnormal Lab Results - Last 24 Hours (Table) 08/27/20 08/27/20 Range/Units 10:30 10:30 RBC 3.76 L (3.80-5.40) m/uL Chloride 111 H (98-107) mmol/L Glucose 102 H (74-99) mg/dL Total Protein 5.9 L (6.3-8.2) g/dL Albumin 3.2 L (3.5-5.0) g/dL Microbiology - Last 24 Hours (Table) 08/26/20 03:35 Blood Culture - Preliminary Blood No Growth after 24 hours 08/25/20 16:00 Urine Culture - Preliminary Urine,Voided Gram Neg Bacilli 08/25/20 17:36 Blood Culture - Preliminary Blood No Growth after 24 hours
--- NOTE | 2020-08-27 18:00 | PN ---
PROGRESS NOTE DATE OF SERVICE: 08/27/2020 REASON FOR FOLLOWUP: Transplant nephritis. INTERVAL HISTORY: The patient is afebrile. The patient is feeling better. Still complaining of some pain in the right lower abdominal area with slight decreased intensity. No chest pain, shortness of breath or cough. PHYSICAL EXAMINATION: Blood pressure 116/71 with a pulse of 73, temperature 98.4, she is 99% on room air. General description is a middle-aged female up in the chair in no distress. Respiratory system: Unlabored breathing, clear to auscultation anteriorly. Heart S1, S2. Regular rate and rhythm. Abdomen is soft, no tenderness. LABS: Hemoglobin is 11.1, white count 5.4, BUN of 14, creatinine 0.75. Urine showing Gram- negative. Blood culture so far negative. 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 Patient is covered with cefepime, to continue while waiting for the culture to finalize and monitor clinical course closely. MMODL / IJN: [id number] /
[2020-08-28] MEDS: DOCUSATE 100 MG CAP PO SCH ×3 (02:34→19:25)
[2020-08-28] MEDS: LACTATED RINGERS 1,000 ML IV SCH ×2 (05:31→09:56)
[2020-08-28] MEDS: CEFEPIME 2 GM in SODIUM CHLORIDE 0.9% 100 ML IVPB SCH ×2 (08:16→16:08)
[2020-08-28] MEDS: ONDANSETRON 4 MG/2 ML VIAL IVP PRN (08:16)
[2020-08-28] MEDS: ENOXAPARIN 40 MG/0.4 ML SYRINGE SQ SCH (08:21)
[2020-08-28] MEDS: predniSONE 5 MG TAB PO SCH (08:22)
[2020-08-28] MEDS: amLODIPine 5 MG TAB PO SCH (08:22)
[2020-08-28] MEDS: ASPIRIN 81 MG PO SCH (08:22)
[2020-08-28] MEDS: FAMOTIDINE 20 MG TAB PO SCH ×2 (08:22→19:25)
[2020-08-28] MEDS: ATORVASTATIN 40 MG TAB PO SCH (08:22)
[2020-08-28] MEDS: METOPROLOL SUCCINATE (ER) 50 MG TAB.ER.24H PO SCH (08:22)
[2020-08-28] MEDS: medroxyPROGESTERone 10 MG TABLET PO SCH (08:23)
[2020-08-28] MEDS: NON FORMULARY DRUG (Tacrolimus [Envarsus Xr] 1 MG Tab.Er.24h) PO SCH (08:25)
--- NOTE | 2020-08-28 09:27 | P.GSCN ---
History of Present Illness Consult date: 08/28/20 History of present illness: 40-year-old female presented to the emergency department with 2 days of lower abdominal pain and dysuria. She also was noted to have leukocytosis along with febrile episodes. Findings were consistent with pyelonephritis with urine cultures being positive for E. coli. Patient is also noted to have a history of pancreatic and kidney transplant approximately 2 years ago in [facility]. This was secondary to type 1 diabetes. She is recently been trying to transfer her care to [facility] in [place]. The patient began complaining of right upper quadrant and right lower quadrant abdominal pain. Secondary to this workup was performed with an ultrasound. Patient is noted to have elevated bilirubin along with gallstones. She complains of right upper quadrant and epigastric soreness. She is also having nausea and vomiting. She is on antibiotics treating her urinary tract infection and pyelonephritis. Review of Systems All systems: negative Past Medical History Past Medical History: Heart Failure, Dialysis, Eye Disorder, Hyperlipidemia, Hypertension, Renal Disease Additional Past Medical History / Comment(s): osteoporosis History of Any Multi-Drug Resistant Organisms: None Reported Past Surgical History: Appendectomy, Section, Coronary Bypass/CABG, Tubal Ligation Additional Past Surgical History / Comment(s): kidney transplant/cataract surg/fistula with stent placement-rt arm Past Anesthesia/Blood Transfusion Reactions: No Reported Reaction Past Psychological History: No Psychological Hx Reported Smoking Status: Former smoker Past Alcohol Use History: None Reported Past Drug Use History: None Reported - Past Family History Father Family Medical History: Coronary Artery Disease (CAD), Respiratory Disorder Medications and Allergies Home Medications Medication Instructions Recorded Confirmed Type Aspirin EC [Ecotrin Low Dose] 81 mg PO DAILY 02/29/20 08/25/20 History Ergocalciferol (Vitamin D2) 50,000 units PO TH 02/29/20 08/25/20 History [Vitamin D2 (50,000 units)] Rosuvastatin [Crestor] 20 mg PO DAILY 02/29/20 08/25/20 History Tacrolimus [Envarsus Xr] 3 mg PO DAILY 02/29/20 08/25/20 History predniSONE 5 mg PO DAILY 02/29/20 08/25/20 History Clotrimazole Cream [Lotrimin Cream] 1 applic TOPICAL DAILY 08/25/20 08/25/20 History Denosumab [Prolia] 60 mg SQ Q180D 08/25/20 08/25/20 History Famotidine [Pepcid] 20 mg PO BID 08/25/20 08/25/20 History Indomethacin [Indocin] 50 mg PO BID 08/25/20 08/25/20 History Medroxyprogesterone Acetate 150 mg IM Q84D 08/25/20 08/25/20 History [Depo-Provera] Metoprolol Succinate [Toprol XL] 50 mg PO DAILY 08/25/20 08/25/20 History Vasepa 1gm 2 gm PO BID 08/25/20 08/25/20 History amLODIPine [Norvasc] 5 mg PO DAILY 08/25/20 08/25/20 History medroxyPROGESTERone [Provera] 10 mg PO DAILY 08/25/20 08/25/20 History Allergies Allergy/AdvReac Type Severity Reaction Status Date / Time ketamine Allergy Anaphylaxis Verified 08/25/20 17:27 lisinopril Allergy Swelling Verified 08/25/20 17:27 sulfamethoxazole AdvReac Unknown Verified 08/25/20 17:27 [From Bactrim] trimethoprim [From Bactrim] AdvReac Unknown Verified 08/25/20 17:27 Surgical - Exam Osteopathic Statement: *. No significant issues noted on an osteopathic structural exam other than those noted in the History and Physical/Consult. Vital Signs Temp Pulse Resp BP Pulse Ox 98.3 F 77 20 122/70 97 08/25/20 14:34 08/25/20 14:34 08/25/20 14:34 08/25/20 14:34 08/25/20 14:34 - General no distress - Eyes normal ocular movement - ENT no hearing loss - Neck trachea midline - Respiratory normal respiratory effort - Abdomen Soft, tenderness to palpation in the epigastrium right upper quadrant and right lower quadrant, nondistended, no rebound, no guarding Abdomen: soft Results - Labs 08/27/20 10:30 08/27/20 10:30 Abnormal Lab Results - Last 24 Hours (Table) 08/27/20 08/27/20 Range/Units 10:30 10:30 RBC 3.76 L (3.80-5.40) m/uL Chloride 111 H (98-107) mmol/L Glucose 102 H (74-99) mg/dL Total Protein 5.9 L (6.3-8.2) g/dL Albumin 3.2 L (3.5-5.0) g/dL Microbiology - Last 24 Hours (Table) 08/26/20 03:35 Blood Culture - Preliminary Blood No Growth after 48 hours 08/25/20 17:36 Blood Culture - Preliminary Blood No Growth after 48 hours 08/25/20 16:00 Urine Culture - Final Urine,Voided Escherichia coli Diabetes panel 08/27/20 Range/Units 10:30 Sodium 140 (137-145) mmol/L Potassium 4.2 (3.5-5.1) mmol/L Chloride 111 H (98-107) mmol/L Carbon Dioxide 24 (22-30) mmol/L BUN 14 (7-17) mg/dL Creatinine 0.75 (0.52-1.04) mg/dL Glucose 102 H (74-99) mg/dL Calcium 9.9 (8.4-10.2) mg/dL AST 17 (14-36) U/L ALT 12 (4-34) U/L Alkaline Phosphatase 42 (38-126) U/L Total Protein 5.9 L (6.3-8.2) g/dL Albumin 3.2 L (3.5-5.0) g/dL Calcium panel 08/27/20 Range/Units 10:30 Calcium 9.9 (8.4-10.2) mg/dL Albumin 3.2 L (3.5-5.0) g/dL Pituitary panel 08/27/20 Range/Units 10:30 Sodium 140 (137-145) mmol/L Potassium 4.2 (3.5-5.1) mmol/L Chloride 111 H (98-107) mmol/L Carbon Dioxide 24 (22-30) mmol/L BUN 14 (7-17) mg/dL Creatinine 0.75 (0.52-1.04) mg/dL Glucose 102 H (74-99) mg/dL Calcium 9.9 (8.4-10.2) mg/dL Adrenal panel 08/27/20 Range/Units 10:30 Sodium 140 (137-145) mmol/L Potassium 4.2 (3.5-5.1) mmol/L Chloride 111 H (98-107) mmol/L Carbon Dioxide 24 (22-30) mmol/L BUN 14 (7-17) mg/dL Creatinine 0.75 (0.52-1.04) mg/dL Glucose 102 H (74-99) mg/dL Calcium 9.9 (8.4-10.2) mg/dL Total Bilirubin 1.0 (0.2-1.3) mg/dL AST 17 (14-36) U/L ALT 12 (4-34) U/L Alkaline Phosphatase 42 (38-126) U/L Total Protein 5.9 L (6.3-8.2) g/dL Albumin 3.2 L (3.5-5.0) g/dL Assessment and Plan Plan: 40-year-old female with pyelonephritis and concern for symptomatically cholelithiasis versus cholecystitis. Leukocytosis has improved with IV antibiotics. Patient continues to have dry heaving, nausea and vomiting along with epigastric right upper quadrant tenderness. Based on her history of pancreatic and kidney transplant, patient will have altered anatomy along with immunocompromised state based on post transplant medication regimen. After discussion with the patient, her preference is for evaluation by a transplant team prior to any surgical intervention. This is completely reasonable. I would recommend transfer to a transplant facility, specifically [facility], as they are evaluating her case currently and have her medical records from [place]. This was also discussed with patient's admitting physician, Dr. Izquierdo. She is agreeable with the plan.
[2020-08-28] MEDS ORDERED: PROCHLORPERAZINE INJ 10 MG/2 ML VIAL IVP PRN (09:49)
[2020-08-28] MEDS: ACETAMINOPHEN TAB 325 MG TAB PO PRN (09:56)
[2020-08-28] MEDS ORDERED: HYDROmorphone 0.5 MG/0.5 ML SYRINGE IVP PRN (09:58)
[2020-08-28 11:07] LABS: HCT 35.4 % (34.0-46.0); HGB 12.1 gm/dL (11.4-16.0); MCH 31.4 pg (25.0-35.0); MCHC 34.2 g/dL (31.0-37.0); Platelet Count 202 k/uL (150-450); RBC 3.85 m/uL (3.80-5.40); WBC 5.6 k/uL (3.8-10.6)
[2020-08-28 11:18] LABS: ALT 13 U/L (4-34); AST 16 U/L (14-36); African American GFR (CKD) >90 (>60 ml/min/1.73 sqM); Albumin 3.3 g/dL (3.5-5.0); Albumin/Globulin Ratio 1.1; Alkaline Phosphatase 46 U/L (38-126); Anion Gap 7 mmol/L; Blood Urea Nitrogen 14 mg/dL (7-17); Calcium 10.1 mg/dL (8.4-10.2); Carbon Dioxide 21 mmol/L (22-30); Chloride 112 mmol/L (98-107); Glucose 94 mg/dL (74-99); Non-African American GFR(CKD) 90 (>60 ml/min/1.73 sqM); Sodium 140 mmol/L (137-145); Total Bilirubin 0.7 mg/dL (0.2-1.3); Total Protein 6.3 g/dL (6.3-8.2)
--- NOTE | 2020-08-28 13:38 | PN ---
PROGRESS NOTE Patient is seen for followup for posttransplant care. She is status post kidney/pancreas transplant, admitted with abdominal pain and discomfort and found to have a urinary tract infection with urine culture growing Escherichia coli. The patient is maintained on cefepime. She is maintained on IV fluids as well. Her serum creatinine has been within normal range. This morning, patient states she is having some abdominal discomfort with nausea as well as some back pain in the upper back and the chest area. No difficulty in passing urine. PHYSICAL EXAMINATION: Blood pressure is 118/64, heart rate 78 per minute. She is afebrile. Examination of the heart S1, S2. Examination of the lungs, bilateral breath sounds are heard. Abdomen is soft, nontender. The renal transplant appears to be mildly tender. [employer] exam grossly intact. LABS: Show sodium 140, potassium 4.0, chloride 112, CO2 is 21, BUN 14, creatinine 0.8 mg/dL. ASSESSMENT: 1. Status post simultaneous kidney/pancreas transplant, currently doing well. Maintained on tacrolimus and prednisone. The patient takes Envarsus for the tacrolimus. 2. Transplant urinary tract infection/pyelonephritis, maintained on cefepime. Leukocytosis has improved. Patient is afebrile. The renal allograft is still slightly tender. We will continue with the IV antibiotics for now. 3. Gallstones, evaluated by surgery. There is no acute indication for surgery at this point. PLAN: Decrease tacrolimus slightly. Continue with the prednisone and continue with antibiotics and IV fluids. MMODL / IJN: [id number] /
--- NOTE | 2020-08-28 14:16 | P.PN ---
Subjective Progress Note Date: 08/28/20 Principal diagnosis: dysuria Patient is a 40-year-old female status post pancreatic and kidney transplant secondary to type 1 diabetes and renal failure, hypertension, dyslipidemia, and coronary artery disease status post triple vessel bypass who presented to the hospital at the direction of her primary care provider for urinary tract infection symptoms. In the ER her urine was positive for blood, nitrate, red blood cells, and white blood cells. She was noted to have white blood cell count of 12.2, carbon dioxide 19 with a negative anion gap. She was started on Rocephin and admitted for pyelonephritis. She then spiked a fever of 100.6 consistent with sepsis. Nephrology was consulted, Renal ultrasound showed transplanted kidney within normal limits. Urine culture showed 100,000 gram- negative bacilli. She was seen by infectious disease who changed her antibiotics from Rocephin to cefepime with concerns for possible Pseudomonas. Urine culture came back with E. coli that was pansensitive. She developed right upper quadrant pain with radiation to her right shoulder and increasing nausea and vomiting. She underwent gallbladder ultrasound which showed multiple gallstones in the gallbladder neck and dependent portion of the gallbladder with dilated common bile duct likely related to gallbladder dysfunction. She was seen and evaluated by general surgery. They recommended transfer to a tertiary care center secondary to her post pancreatic and kidney transplant. She is having symptomatic cholelithiasis with high likelihood of progression. Case was subsequently discussed with the [facility] who stated it would take 6-8 days to obtain a bed for the patient. Gerald sim[facility] was then contacted who agreed to accept the patient. Currently awaiting insurance auth. Patient seen and examined at bedside. She continues to have right upper quadrant pain as well as intractable nausea and vomiting today. Zofran did not help. She is now having some pain in her shoulder. She is not feeling like she wants to eat or drink much. She does workout that she has been having pain in her right scapular area for the last 2 weeks. On Mother's Day she had acute abdominal pain that was severe in intensity nature with radiation to her shoulder and vomiting she went to an outside hospital where she was diagnosed with a muscle strain and sent home. She denies any chest pain or shortness of breath. General: Ill-appearing, moderate distress appears at stated age Derm: warm, dry Head: atraumatic, normocephalic, symmetric Eyes: EOMI, no lid lag, anicteric sclera Mouth: no lip lesion, mucus membranes moist Cardiovascular: S1S2 reg, no murmur, positive posterior tibial pulse bilateral, Lungs: CTA bilateral, no rhonchi, no rales , no accessory muscle use Abdominal: soft, tender to palpation right upper quadrant, tender to palpation right lower quadrant, no guarding, no appreciable organomegaly Ext: no gross muscle atrophy, no edema, no contractures, boot over left ankle Neuro: CN II-XI grossly intact, no focal neuro deficits Psych: Alert, oriented, appropriate affect E. coli Pyelonephritis with sepsis in an immunocompromised patient - Infectious disease recommendations appreciated -Continue with cefepime until down graded by ID. -IV fluids Symptomatic cholelithiasis- d/w surgery rec transfer. - antiemetics - symptomiatic control - low fat diet History of renal transplant -Nephrology recommendations -maintain prograft and prednisone Elevated bilirubin, resolved Metabolic acidosis, resolved Chronic: Diabetes mellitus type 1 status post pancreatic transplant no longer requiring insulin therapy Left Charcot foot Regarding artery disease status post triple-vessel bypass Awaiting transfer to [facility] Objective - Vital Signs Vital signs: Vital Signs Temp 98.1 F 08/28/20 07:00 Pulse 78 08/28/20 08:00 Resp 16 08/28/20 08:00 BP 118/64 08/28/20 07:00 Pulse Ox 98 08/28/20 07:00 Intake & Output 08/27/20 08/28/20 08/28/20 18:59 06:59 18:59 Other: Voiding Method Toilet Toilet Toilet # Voids 3 1 - Labs CBC & Chem 7: 08/28/20 10:43 08/28/20 10:43 Labs: Abnormal Lab Results - Last 24 Hours (Table) 08/28/20 Range/Units 10:43 Chloride 112 H (98-107) mmol/L Carbon Dioxide 21 L (22-30) mmol/L Albumin 3.3 L (3.5-5.0) g/dL Microbiology - Last 24 Hours (Table) 08/26/20 03:35 Blood Culture - Preliminary Blood No Growth after 48 hours 08/25/20 17:36 Blood Culture - Preliminary Blood No Growth after 48 hours 08/25/20 16:00 Urine Culture - Final Urine,Voided Escherichia coli
--- NOTE | 2020-08-28 17:25 | PN ---
PROGRESS NOTE DATE OF SERVICE: 08/28/2020 REASON FOR FOLLOW UP: Transplant nephritis. INTERVAL HISTORY: Patient is afebrile. The patient is feeling better breathing comfortably. Overall, pain and discomfort to the right lower abdominal area has decreased. No chest pain, shortness of breath or cough. No diarrhea. PHYSICAL EXAMINATION: Blood pressure 118/64, pulse of 73, temperature 98.1. She is 98% on room air. GENERAL DESCRIPTION: The patient is a middle-aged female lying in bed in no distress. RESPIRATORY SYSTEM: Unlabored breathing, clear to auscultation anteriorly. HEART: S1, S2. Regular rate and rhythm. LABS: Hemoglobin is 10.1, white count of 5.6 BUN of 14 and creatinine 0.82. Urine with E coli sensitive pathogen. Blood culture negative. DIAGNOSTIC IMPRESSION AND PLAN: Patient with E coli, possible ( ) nephritis, clinically improved on cefepime. Finish therapy with oral Ceftin and close outpatient followup condition. MMODL / IJN: [id number] /
[2020-08-29] MEDS: CEFEPIME 2 GM in SODIUM CHLORIDE 0.9% 100 ML IVPB SCH ×2 (00:13→07:29)
[2020-08-29] MEDS: ENOXAPARIN 40 MG/0.4 ML SYRINGE SQ SCH (07:29)
[2020-08-29] MEDS: amLODIPine 5 MG TAB PO SCH (07:30)
[2020-08-29] MEDS: ATORVASTATIN 40 MG TAB PO SCH (07:30)
[2020-08-29] MEDS: METOPROLOL SUCCINATE (ER) 50 MG TAB.ER.24H PO SCH (07:30)
[2020-08-29] MEDS: FAMOTIDINE 20 MG TAB PO SCH (07:30)
[2020-08-29] MEDS: ASPIRIN 81 MG PO SCH (07:30)
[2020-08-29] MEDS: medroxyPROGESTERone 10 MG TABLET PO SCH (07:30)
[2020-08-29] MEDS: DOCUSATE 100 MG CAP PO SCH (07:30)
[2020-08-29] MEDS: predniSONE 5 MG TAB PO SCH (07:30)
[2020-08-29] MEDS: LACTATED RINGERS 1,000 ML IV SCH (07:31)
[2020-08-29 07:45] VITALS: BP 135/69; PULSE 73; RESP 18; TEMP 98.6
[2020-08-29] MEDS ORDERED: TACROLIMUS 2 MG PO SCH (09:00)
--- NOTE | 2020-08-29 09:14 | P.PN ---
Subjective Patient is seen in follow-up for renal/pancreas transplant management. Oral intake is good. No vomiting or diarrhea. Good urine output. Vital signs are stable. General: The patient appeared well nourished and normally developed. HEENT: Head exam is unremarkable. Neck is without jugular venous distension. LUNGS: Breath sounds decreased. HEART: Rate and Rhythm are regular. ABDOMEN: Soft, no distention. EXTREMITITES: No edema. Objective - Vital Signs Vital signs: Vital Signs Temp 98.6 F 08/29/20 07:00 Pulse 73 08/29/20 08:00 Resp 18 08/29/20 08:00 BP 135/69 08/29/20 07:00 Pulse Ox 98 08/29/20 07:00 Intake & Output 08/28/20 08/29/20 08/29/20 18:59 06:59 18:59 Other: Voiding Method Toilet Toilet Toilet # Voids 2 1 - Labs CBC & Chem 7: 08/28/20 10:43 08/28/20 10:43 Labs: Abnormal Lab Results - Last 24 Hours (Table) 08/28/20 Range/Units 10:43 Chloride 112 H (98-107) mmol/L Carbon Dioxide 21 L (22-30) mmol/L Albumin 3.3 L (3.5-5.0) g/dL Microbiology - Last 24 Hours (Table) 08/26/20 03:35 Blood Culture - Preliminary Blood No Growth after 72 hours 08/25/20 17:36 Blood Culture - Preliminary Blood No Growth after 72 hours Assessment and Plan Plan: Assessment: 1. Status post simultaneous kidney and pancreas transplant. GFR at baseline. Creatinine 0.82 as of yesterday. 2. Transplant UTI the urine culture positive for E. coli maintained on antibiotics. 3. Gallstones. Surgery following. 4. Benign hypertension. Stable. Plan: Decrease rate of IV fluids. Encourage oral intake. Maintain tacrolimus and prednisone. Avoid nephrotoxins.
[2020-08-29 09:55] LABS: HCT 38.4 % (37.2-46.3); HGB 12.4 g/dL (12.0-15.0); MCH 30.4 pg (27.0-32.0); MCHC 32.3 g/dL (32.0-37.0); MCV 94.1 fL (80.0-97.0); Mean Platelet Volume 9.5 fL (9.5-12.2); Platelet Count 254 X 10*3/uL (140-440); RBC 4.08 X 10*6/uL (4.10-5.20); RDW 13.1 % (11.5-14.5); WBC 5.08 X 10*3/uL (4.50-10.00)
[2020-08-29 10:54] LABS: African American GFR (CKD) 106.9 (60.0-200.0); Albumin 3.7 g/dL (3.80-4.90); Albumin/Globulin Ratio 1.61 (1.60-3.17); BUN/Creat Ratio 18.75 Ratio (12.00-20.00); Calcium 9.5 mg/dL (8.7-10.3); Globulin 2.3 g/dL (1.6-3.3); Non-African American GFR(CKD) 92.2 (60.0-200.0); Potassium 4.1 mmol/L (3.5-5.5); Total Bilirubin 0.5 mg/dL (0.2-1.2)
--- NOTE | 2020-08-29 11:48 | PN ---
PROGRESS NOTE DATE OF SERVICE: 08/29/2020 REASON FOR FOLLOWUP: E coli transplant nephritis. INTERVAL HISTORY: Patient is afebrile. The patient is breathing comfortably. Denies having any chest pain, shortness of breath or cough. Abdominal pain has decreased. Complaining of constipation, no vomiting though. PHYSICAL EXAMINATION: Blood pressure 135/59, pulse of 73, temperature 98.6, she is 98%. General description is a middle-aged female up in the chair in no distress. Respiratory system: Unlabored breathing, clear to auscultation anteriorly. Heart S1, S2. Regular rate and rhythm. Abdomen is soft, no tenderness. LABORATORY DATA: Hemoglobin is 12.4, white blood 5.0, BUN of 15, creatinine 0.8. Blood culture negative. DIAGNOSTIC IMPRESSION AND PLAN: Patient with E coli transplant nephritis. This patient has shown overall improvement. He is on cefepime and switch to oral Ceftin and close outpatient follow. MMODL / IJN: [id number] /
--- NOTE | 2020-08-29 13:45 | P.DS ---
Providers Date of admission: 08/26/20 14:22 Expected date of discharge: 08/29/20 Attending physician: Adrian Russo Consults: 08/25/20 18:38 Consult Physician Stat Consulting Provider: Merline Mac Consult Reason/Comments: UTI, kidney infection, history of renal transplant. Do you want consulting provider notified?: Already Contacted 08/25/20 23:33 Consult Physician Routine Consulting Provider: Paige Brunson Consult Reason/Comments: kidney transplant patient Do you want consulting provider notified?: Yes 08/27/20 16:57 Consult Physician Routine Consulting Provider: Samina Valdovinos Consult Reason/Comments: gallstone,symptomatic Do you want consulting provider notified?: Yes Primary care physician: Ariana Hernandez Hospital Course: Discharge Diagnosis: E. coli Pyelonephritis with sepsis in an immunocompromised patient Symptomatic cholelithiasis- d/w surgery rec transfer. History of renal transplant Elevated bilirubin, resolved Metabolic acidosis, resolved Diabetes mellitus type 1 status post pancreatic transplant no longer requiring insulin therapy Left Charcot foot Coronacry artery disease status post triple-vessel bypass Hospital Course: Patient is a 40-year-old female status post pancreatic and kidney transplant secondary to type 1 diabetes and renal failure, hypertension, dyslipidemia, and coronary artery disease status post triple vessel bypass who presented to the hospital at the direction of her primary care provider for urinary tract infection symptoms. In the ER her urine was positive for blood, nitrate, red blood cells, and white blood cells. She was noted to have white blood cell count of 12.2, carbon dioxide 19 with a negative anion gap. She was started on Rocephin and admitted for pyelonephritis. She then spiked a fever of 100.6 consistent with sepsis. Nephrology was consulted, Renal ultrasound showed transplanted kidney within normal limits. Urine culture showed 100,000 gram- negative bacilli. She was seen by infectious disease who changed her antibiotics from Rocephin to cefepime with concerns for possible Pseudomonas. Urine culture came back with E. coli that was pansensitive. She developed right upper quadrant pain with radiation to her right shoulder and increasing nausea and vomiting. She underwent gallbladder ultrasound which showed multiple gallstones in the gallbladder neck and dependent portion of the gallbladder with dilated common bile duct likely related to gallbladder dysfunction. She was seen by surgery who recommended transfer to transplant center for treatment of symptomatic cholelithaisis. Conversations were initiated with [facility] who felt she might be able to have this managed as an outpatient if her symptoms are controlled. They did put her on the transfer list. However symptoms resolved she was tolerating a diet she was determined stable for discharge home. She'll complete a total of 14 days of antibiotics for her E. coli pyelonephritis. She'll follow-up at [facility] for definitive treatment of her cholelithiasis. She'll follow-up with Dr. Hernandez later this week. Patient seen and examined at bedside. Nausea and vomiting is resolved, abdominal pain is better. She is requesting discharge and is aware that she will need diffinative management for her gallbladder. Vital signs reviewed and stable. General: non toxic, no distress, appears at stated age Derm: warm, dry Head: atraumatic, normocephalic, symmetric Eyes: EOMI, no lid lag, anicteric sclera Mouth: no lip lesion, mucus membranes moist Cardiovascular: S1S2 reg, no murmur, positive posterior tibial pulse bilateral, Lungs: CTA bilateral, no rhonchi, no rales , no accessory muscle use Abdominal: soft, nontender to palpation, no guarding, no appreciable organomegaly Ext: no gross muscle atrophy, no edema, boot over left foot Neuro: CN II-XI grossly intact, no focal neuro deficits Psych: Alert, oriented, appropriate affect A total of 35 minutes of time were spent preparing this complex discharge summary . Patient Condition at Discharge: Stable Plan - Discharge Summary Discharge Rx Participant: Yes New Discharge Prescriptions: New Cefuroxime Axetil [Ceftin] 250 mg PO BID 11 Days #12 tab Continue Rosuvastatin [Crestor] 20 mg PO DAILY predniSONE 5 mg PO DAILY Ergocalciferol (Vitamin D2) [Vitamin D2 (50,000 Iu)] 50,000 units PO TH Aspirin EC [Ecotrin Low Dose] 81 mg PO DAILY Metoprolol Succinate [Toprol XL] 50 mg PO DAILY Medroxyprogesterone Acetate [Depo-Provera] 150 mg IM Q84D Indomethacin [Indocin] 50 mg PO BID Famotidine [Pepcid] 20 mg PO BID Vasepa 1gm 2 gm PO BID medroxyPROGESTERone [Provera] 10 mg PO DAILY Denosumab [Prolia] 60 mg SQ Q180D amLODIPine [Norvasc] 5 mg PO DAILY Clotrimazole Cream [Lotrimin Cream] 1 applic TOPICAL DAILY Changed Tacrolimus [Envarsus Xr] 2 mg PO DAILY #0 Discharge Medication List Aspirin EC [Ecotrin Low Dose] 81 mg PO DAILY 02/29/20 [History] Ergocalciferol (Vitamin D2) [Vitamin D2 (50,000 Iu)] 50,000 units PO TH 02/29/20 [History] Rosuvastatin [Crestor] 20 mg PO DAILY 02/29/20 [History] predniSONE 5 mg PO DAILY 02/29/20 [History] Clotrimazole Cream [Lotrimin Cream] 1 applic TOPICAL DAILY 08/25/20 [History] Denosumab [Prolia] 60 mg SQ Q180D 08/25/20 [History] Famotidine [Pepcid] 20 mg PO BID 08/25/20 [History] Indomethacin [Indocin] 50 mg PO BID 08/25/20 [History] Medroxyprogesterone Acetate [Depo-Provera] 150 mg IM Q84D 08/25/20 [History] Metoprolol Succinate [Toprol XL] 50 mg PO DAILY 08/25/20 [History] Vasepa 1gm 2 gm PO BID 08/25/20 [History] amLODIPine [Norvasc] 5 mg PO DAILY 08/25/20 [History] medroxyPROGESTERone [Provera] 10 mg PO DAILY 08/25/20 [History] Cefuroxime Axetil [Ceftin] 250 mg PO BID 11 Days #12 tab 08/29/20 [Rx] Tacrolimus [Envarsus Xr] 2 mg PO DAILY #0 08/29/20 [Rx] Follow up Appointment(s)/Referral(s): Ariana Hernandez MD [Primary Care Provider] - 1-2 days Patient Instructions/Handouts: Low Fat Diet (DC) Activity/Diet/Wound Care/Special Instructions: Activity: as tolerated Diet: heart healthy, low fat Special Instructions: Seek medical care if recurrent nausea and abdominal pain [facility] phone number: [phone] Discharge Disposition: HOME SELF-CARE
== END 2020-08-29 14:05 | disposition hospice, home (50) | DRG 698 ==
LOC: EC 14:24 → 6NMEDSUR 18:38 → OBSVTOIN 08-26 14:22
PROVIDERS: ADMIT Internal Medicine; ATTEND Internal Medicine
DX: T86.13 Kidney transplant infection (principal); A41.51 Sepsis due to Escherichia coli [E. coli]; D84.9 Immunodeficiency, unspecified; E87.2 Acidosis; Z94.83 Pancreas transplant status; N10 Acute pyelonephritis; E10.610 Type 1 diabetes mellitus with diabetic neuropathic arthropathy; I11.0 Hypertensive heart disease with heart failure; I50.9 Heart failure, unspecified; Z20.822 Contact with and (suspected) exposure to COVID-19; E83.9 Disorder of mineral metabolism, unspecified; E78.5 Hyperlipidemia, unspecified; M81.0 Age-related osteoporosis without current pathological fracture; K80.20 Calculus of gallbladder without cholecystitis without obstruction; I25.10 Atherosclerotic heart disease of native coronary artery without angina pectoris; K59.00 Constipation, unspecified; G89.29 Other chronic pain; R31.9 Hematuria, unspecified; T45.1X5A Adverse effect of antineoplastic and immunosuppressive drugs, initial encounter; Z79.82 Long term (current) use of aspirin; Z79.52 Long term (current) use of systemic steroids; Z79.899 Other long term (current) drug therapy; Z87.891 Personal history of nicotine dependence; Z90.49 Acquired absence of other specified parts of digestive tract; Z87.19 Personal history of other diseases of the digestive system; Z98.891 History of uterine scar from previous surgery; Z98.51 Tubal ligation status; Z98.49 Cataract extraction status, unspecified eye; Z95.1 Presence of aortocoronary bypass graft; Z98.890 Other specified postprocedural states; Y83.0 Surgical operation with transplant of whole organ as the cause of abnormal reaction of the patient, or of later complication, without mention of misadventure at the time of the procedure; Z88.4 Allergy status to anesthetic agent; Z88.8 Allergy status to other drugs, medicaments and biological substances; Z82.49 Family history of ischemic heart disease and other diseases of the circulatory system; Z83.6 Family history of other diseases of the respiratory system
CPT/HCPCS: 36415; 71045; 76705; 76776; 80053; 80197; 81001; 81025; 82150; 83605; 83690; 85025; 85027; 85610; 85730; 86850; 86900; 86901; 87040; 87077; 87086; 87186; 87324; 87635; 96361; 96365; 99285

== ENCOUNTER 2020-09-29 18:31 | Emergency (ER) | payer MEDICARE, OTHER ==
[2020-09-29 18:42] VITALS: TEMP 98
[2020-09-29 20:55] LABS: Albumin 4.1 g/dL (3.5-5.0); Calcium 10.1 mg/dL (8.4-10.2); Potassium 4.1 mmol/L (3.5-5.1); Total Bilirubin 0.3 mg/dL (0.2-1.3); Total Protein 7.3 g/dL (6.3-8.2)
[2020-09-29 21:17] LABS: HCT 40.6 % (34.0-46.0); HGB 13.5 gm/dL (11.4-16.0); Hypochromasia Slight; MCH 32.5 pg (25.0-35.0); MCHC 33.4 g/dL (31.0-37.0); Mean Platelet Volume 7.2; Platelet Count 280 k/uL (150-450); RBC 4.17 m/uL (3.80-5.40); RDW 13.9 % (11.5-15.5); WBC 4.7 k/uL (3.8-10.6)
[2020-09-29 21:22] LABS: MCV 97.3 fL (80.0-100.0)
[2020-09-29] MEDS ORDERED: SODIUM CHLORIDE 0.9% 1,000 ML IV ONE (21:25)
[2020-09-29 21:59] LABS: Appearance,Urine Cloudy (Clear); Bilirubin,Urine Negative (Negative); Blood,Urine Large (Negative); Color,Urine Dark Brown; Glucose,Urine (UA) Negative (Negative); Ketones,Urine Trace (Negative); Leukocyte Esterase,Urine Small (Negative); Mucus,Urine Occasional /hpf; Nitrite,Urine Negative (Negative); Protein,Urine 2+ (Negative); RBC,Urine >182 /hpf (0-5); Specific Gravity,Urine 1.024 (1.001-1.035); WBC,Urine 16 /hpf (0-5)
--- NOTE | 2020-09-29 22:01 | ED ---
Recheck HPI - General Chief Complaint: Recheck/Abnormal Lab/Rx Stated Complaint: uti Time Seen by Provider: 09/29/20 21:25 Source: patient Mode of arrival: ambulatory Limitations: no limitations - History of Present Illness Initial Comments: 40 year-old female patient with past history significant for Type I diabetes, CAD with 3 vessel bypass, pancreas and kidney transplant presents to the emergency department for "UTI and sepsis". Patient states she saw her care team assistant for fever and frequent urination. States she was diagnosed with UTI and started on Macrobid. They did culture and called today stating that the macrobid would not work for the infection. Her physician did labs this morning and called her informing her that she was septic and needed to come into the emergency department. Patient states she is having flank pain. States fever was up to 103 degrees on Saturday. Fevers seemed to have resolved. Denies any vomiting or diarrhea. Denies abdominal pain. States she is currently on her period. Patient denies any recent rash, cough, shortness of breath, chest pain, diarrhea, constipation, back pain, numbness, tingling, dizziness, weakness, headache, visual changes, or any other complaints. - Related Data Home Medications Medication Instructions Recorded Confirmed Aspirin EC [Ecotrin Low Dose] 81 mg PO DAILY 02/29/20 08/25/20 Ergocalciferol (Vitamin D2) 50,000 units PO TH 02/29/20 08/25/20 [Vitamin D2 (50,000 Iu)] Rosuvastatin [Crestor] 20 mg PO DAILY 02/29/20 08/25/20 predniSONE 5 mg PO DAILY 02/29/20 08/25/20 Clotrimazole Cream [Lotrimin Cream] 1 applic TOPICAL DAILY 08/25/20 08/25/20 Denosumab [Prolia] 60 mg SQ Q180D 08/25/20 08/25/20 Famotidine [Pepcid] 20 mg PO BID 08/25/20 08/25/20 Indomethacin [Indocin] 50 mg PO BID 08/25/20 08/25/20 Medroxyprogesterone Acetate 150 mg IM Q84D 08/25/20 08/25/20 [Depo-Provera] Metoprolol Succinate [Toprol XL] 50 mg PO DAILY 08/25/20 08/25/20 Vasepa 1gm 2 gm PO BID 08/25/20 08/25/20 amLODIPine [Norvasc] 5 mg PO DAILY 08/25/20 08/25/20 medroxyPROGESTERone [Provera] 10 mg PO DAILY 08/25/20 08/25/20 Previous Rx's Medication Instructions Recorded Cefuroxime Axetil [Ceftin] 250 mg PO BID 11 Days #12 tab 08/29/20 Tacrolimus [Envarsus Xr] 2 mg PO DAILY #0 08/29/20 Cephalexin [Keflex] 500 mg PO Q6HR #40 cap 09/29/20 Allergies Allergy/AdvReac Type Severity Reaction Status Date / Time ketamine Allergy Anaphylaxis Verified 09/29/20 18:42 lisinopril Allergy Swelling Verified 09/29/20 18:42 sulfamethoxazole AdvReac Unknown Verified 09/29/20 18:42 [From Bactrim] trimethoprim [From Bactrim] AdvReac Unknown Verified 09/29/20 18:42 Review of Systems ROS Statement: Those systems with pertinent positive or pertinent negative responses have been documented in the HPI. ROS Other: All systems not noted in ROS Statement are negative. Past Medical History Past Medical History: Heart Failure, Dialysis, Eye Disorder, Hyperlipidemia, Hypertension, Renal Disease Additional Past Medical History / Comment(s): osteoporosis History of Any Multi-Drug Resistant Organisms: None Reported Past Surgical History: Appendectomy, Section, Coronary Bypass/CABG, Tubal Ligation Additional Past Surgical History / Comment(s): kidney transplant/cataract surg/fistula with stent placement-rt arm Past Anesthesia/Blood Transfusion Reactions: No Reported Reaction Past Psychological History: No Psychological Hx Reported Smoking Status: Former smoker Past Alcohol Use History: None Reported Past Drug Use History: None Reported - Past Family History Father Family Medical History: Coronary Artery Disease (CAD), Respiratory Disorder General Exam Limitations: no limitations General appearance: alert, in no apparent distress, other (Physical well- developed, well-nourished adult female patient in no acute distress. Vital signs upon presentation are temperature 98.0F, pulse 78, respirations 18, blood pressure 127/78, pulse ox 99% on room air.) Respiratory exam: Present: normal lung sounds bilaterally. Absent: respiratory distress, wheezes, rales, rhonchi, stridor Cardiovascular Exam: Present: regular rate, normal rhythm, normal heart sounds. Absent: systolic murmur, diastolic murmur, rubs, gallop, clicks GI/Abdominal exam: Present: soft, normal bowel sounds. Absent: distended, tenderness, guarding, rebound, rigid Neurological exam: Present: alert, oriented X3, CN II-XII intact Psychiatric exam: Present: normal affect, normal mood Skin exam: Present: warm, dry, intact, normal color. Absent: rash Course Vital Signs 09/29/20 18:39 Temperature 98.0 F Pulse Rate 78 Respiratory 18 Rate Blood Pressure 127/78 O2 Sat by Pulse 99 Oximetry Medical Decision Making - Medical Decision Making 40-year-old female patient with past medical history significant for type 1 diabetes, 3 vessel CABG, pancreas and kidney transplant presents for evaluation of urinary tract infection and possible sepsis. Physical examination is unremarkable. Labs reviewed and did reveal normal white blood cell count, normal lactic acid. Urinalysis did show presence of blood that she is on her period. White blood cells were minimal, bacteria was minimal. This was sent for culture. I did discuss the case with her primary care physician Dr. Hernandez. She is able to follow up with patient in the office closely. She will be given IM dose of Rocephin and her antibiotic will be changed to Keflex. Dr. Hernandez will review culture results tomorrow. She is instructed to increase fluids. She will be discharged to follow-up as soon as possible. Return parameters were discussed in detail. She verbalizes understanding and agrees with this plan. Case discussed with my attending Dr. Vázquez. - Lab Data Result diagrams: 09/29/20 20:34 09/29/20 20:34 Lab Results 09/29/20 09/29/20 09/29/20 Range/Units 20:34 20:34 20:34 WBC 4.7 (3.8-10.6) k/uL RBC 4.17 (3.80-5.40) m/uL Hgb 13.5 (11.4-16.0) gm/dL Hct 40.6 (34.0-46.0) % MCV 97.3 D (80.0-100.0) fL MCH 32.5 (25.0-35.0) pg MCHC 33.4 (31.0-37.0) g/dL RDW 13.9 (11.5-15.5) % Plt Count 280 (150-450) k/uL MPV 7.2 Neutrophils % Not Reportable Neutrophils % (Manual) 67 % Band Neuts % (Manual) 1 % Lymphocytes % Not Reportable Lymphocytes % (Manual) 21 % Monocytes % Not Reportable Monocytes % (Manual) 10 % Eosinophils % Not Reportable Eosinophils % (Manual) 1 % Basophils % Not Reportable Neutrophils # Not Reportable Neutrophils # (Manual) 3.10 (1.3-7.7) k/uL Lymphocytes # Not Reportable Lymphocytes # (Manual) 0.99 L (1.0-4.8) k/uL Monocytes # Not Reportable Monocytes # (Manual) 0.47 (0-1.0) k/uL Eosinophils # Not Reportable Eosinophils # (Manual) 0.05 (0-0.7) k/uL Basophils # Not Reportable Nucleated RBCs 0 (0-0) /100 WBC Manual Slide Review Performed Hypochromasia Slight Poikilocytosis (manual Present Sodium 140 (137-145) mmol/L Potassium 4.1 (3.5-5.1) mmol/L Chloride 105 (98-107) mmol/L Carbon Dioxide 24 (22-30) mmol/L Anion Gap 11 mmol/L BUN 27 H (7-17) mg/dL Creatinine 1.09 H (0.52-1.04) mg/dL Est GFR (CKD-EPI)AfAm 74 (>60 ml/min/1.73 sqM) Est GFR (CKD-EPI)NonAf 64 (>60 ml/min/1.73 sqM) Glucose 91 (74-99) mg/dL Plasma Lactic Acid Allan (0.7-2.0) mmol/L Calcium 10.1 (8.4-10.2) mg/dL Total Bilirubin 0.3 (0.2-1.3) mg/dL AST 20 (14-36) U/L ALT 12 (4-34) U/L Alkaline Phosphatase 58 (38-126) U/L Total Protein 7.3 (6.3-8.2) g/dL Albumin 4.1 (3.5-5.0) g/dL Urine Color Dark Brown Urine Appearance Cloudy H (Clear) Urine pH 6.0 (5.0-8.0) Ur Specific Cassandra 1.024 (1.001-1.035) Urine Protein 2+ H (Negative) Urine Glucose (UA) Negative (Negative) Urine Ketones Trace H (Negative) Urine Blood Large H (Negative) Urine Nitrite Negative (Negative) Urine Bilirubin Negative (Negative) Urine Urobilinogen 3.0 (<2.0) mg/dL Ur Leukocyte Esterase Small H (Negative) Urine RBC >182 H (0-5) /hpf Urine WBC 16 H (0-5) /hpf Urine Mucus Occasional H (None) /hpf 09/29/20 Range/Units 20:34 WBC (3.8-10.6) k/uL RBC (3.80-5.40) m/uL Hgb (11.4-16.0) gm/dL Hct (34.0-46.0) % MCV (80.0-100.0) fL MCH (25.0-35.0) pg MCHC (31.0-37.0) g/dL RDW (11.5-15.5) % Plt Count (150-450) k/uL MPV Neutrophils % Neutrophils % (Manual) % Band Neuts % (Manual) % Lymphocytes % Lymphocytes % (Manual) % Monocytes % Monocytes % (Manual) % Eosinophils % Eosinophils % (Manual) % Basophils % Neutrophils # Neutrophils # (Manual) (1.3-7.7) k/uL Lymphocytes # Lymphocytes # (Manual) (1.0-4.8) k/uL Monocytes # Monocytes # (Manual) (0-1.0) k/uL Eosinophils # Eosinophils # (Manual) (0-0.7) k/uL Basophils # Nucleated RBCs (0-0) /100 WBC Manual Slide Review Hypochromasia Poikilocytosis (manual Sodium (137-145) mmol/L Potassium (3.5-5.1) mmol/L Chloride (98-107) mmol/L Carbon Dioxide (22-30) mmol/L Anion Gap mmol/L BUN (7-17) mg/dL Creatinine (0.52-1.04) mg/dL Est GFR (CKD-EPI)AfAm (>60 ml/min/1.73 sqM) Est GFR (CKD-EPI)NonAf (>60 ml/min/1.73 sqM) Glucose (74-99) mg/dL Plasma Lactic Acid Allan 0.6 L (0.7-2.0) mmol/L Calcium (8.4-10.2) mg/dL Total Bilirubin (0.2-1.3) mg/dL AST (14-36) U/L ALT (4-34) U/L Alkaline Phosphatase (38-126) U/L Total Protein (6.3-8.2) g/dL Albumin (3.5-5.0) g/dL Urine Color Urine Appearance (Clear) Urine pH (5.0-8.0) Ur Specific Cassandra (1.001-1.035) Urine Protein (Negative) Urine Glucose (UA) (Negative) Urine Ketones (Negative) Urine Blood (Negative) Urine Nitrite (Negative) Urine Bilirubin (Negative) Urine Urobilinogen (<2.0) mg/dL Ur Leukocyte Esterase (Negative) Urine RBC (0-5) /hpf Urine WBC (0-5) /hpf Urine Mucus (None) /hpf Disposition Clinical Impression: UTI (urinary tract infection) Disposition: HOME SELF-CARE Condition: Good Instructions (If sedation given, give patient instructions): Urinary Tract Infection in Women (ED) Additional Instructions: Increase fluids. Take medications as directed. Contact Dr. Hernandez's office as soon as possible. Return for any new, worsening, or concerning symptoms. Prescriptions: Cephalexin [Keflex] 500 mg PO Q6HR #40 cap Is patient prescribed a controlled substance at d/c from ED?: No Referrals: Ariana Hernandez MD [Primary Care Provider] - 1-2 days Time of Disposition: 23:01
[2020-09-29 22:34] LABS: Band Neutrophils % 1 %; Eosinophils # (M) 0.05 k/uL (0-0.7); Lymphocytes # (M) 0.99 k/uL (1.0-4.8); Monocytes # (M) 0.47 k/uL (0-1.0); Neutrophils % (M) 67 %; Nucleated Red Blood Cells 0 /100 WBC (0-0); Total Cells Counted 100
[2020-09-29 22:35] LABS: Poikilocytosis (M) Present
[2020-09-29] MEDS ORDERED: cefTRIAXone 1,000 MG VIAL (IM USE) IM STA (22:59)
[2020-09-29] MEDS ORDERED: LIDOCAINE 1% INJ 10MG/ML (20 ML MDV) IM STA (23:00)
[2020-09-30 00:31] VITALS: BP 121/83; PULSE 68; RESP 16
== END 2020-09-29 23:25 | disposition home or self-care (01) ==
LOC: EC 18:31
DX: N39.0 Urinary tract infection, site not specified (principal); E10.36 Type 1 diabetes mellitus with diabetic cataract; H26.9 Unspecified cataract; I11.0 Hypertensive heart disease with heart failure; I50.9 Heart failure, unspecified; E78.5 Hyperlipidemia, unspecified; Z87.891 Personal history of nicotine dependence; Z88.8 Allergy status to other drugs, medicaments and biological substances; Z88.2 Allergy status to sulfonamides; Z79.899 Other long term (current) drug therapy
CPT/HCPCS: 36415; 80053; 81001; 83605; 85025; 87086; 96372; 99284

== ENCOUNTER → 2020-09-29 | Outpatient (CLI) | payer MEDICARE, OTHER ==
[2020-09-29 12:24] LABS: Appearance,Urine Cloudy (Clear); Bacteria,Urine Occasional /hpf; Bilirubin,Urine Negative (Negative); Blood,Urine Large (Negative); Color,Urine Dark Brown; Glucose,Urine (UA) Negative (Negative); Hyaline Casts,Urine 8 /lpf (0-2); Ketones,Urine Negative (Negative); Leukocyte Esterase,Urine Small (Negative); Mucus,Urine Few /hpf; Nitrite,Urine Negative (Negative); Protein,Urine 1+ (Negative); RBC,Urine >182 /hpf (0-5); Specific Gravity,Urine 1.019 (1.001-1.035); Squamous Epithelial Cell,Urine 2 /hpf (0-4); WBC,Urine 45 /hpf (0-5); White Blood Cell Casts,Urine 8 /lpf (0)
[2020-09-29 16:30] LABS: Basophils # (A) 0.04 X 10*3/uL (0.00-0.10); Basophils % (A) 0.4 %; Eosinophils # (A) 0.07 X 10*3/uL (0.04-0.35); Eosinophils % (A) 0.8 %; HCT 40.9 % (37.2-46.3); HGB 12.8 g/dL (12.0-15.0); Lymphocytes # (A) 0.43 X 10*3/uL (0.90-5.00); Lymphocytes % (A) 4.7 %; MCH 30.3 pg (27.0-32.0); MCHC 31.3 g/dL (32.0-37.0); MCV 96.9 fL (80.0-97.0); Mean Platelet Volume 9.4 fL (9.5-12.2); Monocytes # (A) 0.96 X 10*3/uL (0.20-1.00); Monocytes % (A) 10.5 %; Neutrophils # (A) 7.61 X 10*3/uL (1.80-7.70); Neutrophils % (A) 83.2 %; Platelet Count 299 X 10*3/uL (140-440); RBC 4.22 X 10*6/uL (4.10-5.20); RDW 13.5 % (11.5-14.5); WBC 9.15 X 10*3/uL (4.50-10.00)
[2020-09-29 17:51] LABS: Erythrocyte Sedimentation Rate 57 mm/Hr (0-20)
[2020-09-29 17:54] LABS: African American GFR (CKD) 65.5 (60.0-200.0); Albumin 4.4 g/dL (3.80-4.90); Albumin/Globulin Ratio 1.52 (1.60-3.17); Anion Gap 12.3 mmol/L (4.00-12.00); BUN/Creat Ratio 19.17 Ratio (12.00-20.00); Calcium 9.7 mg/dL (8.7-10.3); Carbon Dioxide 23.7 mmol/L (21.6-31.8); Globulin 2.9 g/dL (1.6-3.3); Magnesium 2.1 mg/dL (1.5-2.4); Non-African American GFR(CKD) 56.5 (60.0-200.0); Phosphorus 2.1 mg/dL (2.4-5.1); Potassium 4.1 mmol/L (3.5-5.5); Total Bilirubin 0.4 mg/dL (0.2-1.2); Total Protein 7.3 g/dL (6.2-8.2); Uric Acid 6.1 mg/dL (2.9-7.7)
[2020-09-29 18:04] LABS: Folate, Serum 6.3 ng/mL
== END | disposition home or self-care (01) ==
LOC: LABWHC1 11:21
PROVIDERS: ATTEND Family Medicine
DX: E11.22 Type 2 diabetes mellitus with diabetic chronic kidney disease (principal); N39.0 Urinary tract infection, site not specified; N18.9 Chronic kidney disease, unspecified; I25.10 Atherosclerotic heart disease of native coronary artery without angina pectoris; E11.40 Type 2 diabetes mellitus with diabetic neuropathy, unspecified; R53.83 Other fatigue; R11.0 Nausea; R50.9 Fever, unspecified
CPT/HCPCS: 36415; 80053; 81001; 82150; 82306; 82550; 82607; 82746; 83605; 83615; 83690; 83735; 83970; 84100; 84443; 84550; 85025; 85652; 86038; 87040

== ENCOUNTER → 2020-10-19 | Outpatient (CLI) | payer MEDICARE, OTHER ==
[2020-10-19 12:08] VITALS: BP 143/81; PULSE 77; RESP 16; TEMP 99.7
== END | disposition home or self-care (01) ==
LOC: PROCWHC3 11:45
PROVIDERS: ATTEND Internal Medicine
DX: M81.0 Age-related osteoporosis without current pathological fracture (principal)
CPT/HCPCS: 96372; J0897

== ENCOUNTER → 2020-10-27 | Outpatient (CLI) | payer MEDICARE, OTHER ==
--- NOTE | 2020-10-27 11:58 | MM ---
Reason for exam: follow-up at short interval from prior study. Last mammogram was performed 6 months ago. History: Family history of breast cancer in paternal grandmother. Benign excisional biopsy of the right breast, 1991. Took hormonal contraceptives for 9 months. Physical Findings: Nurse did not find any significant physical abnormalities on exam. MG 3D Diag Mammo W/Cad KATIE Bilateral CC and MLO view(s) were taken. Prior study comparison: April 25, 2020, bilateral MG 3d diag mammo w/cad KATIE. February 21, 2018, mammogram, performed at [place]. The breast tissue is extremely dense which could obscure a lesion on mammography. Scattered benign punctate calcifications redemonstrated. No significant new findings when compared with previous films. These results were verbally communicated with the patient and result sheet given to the patient on 10/27/20. ASSESSMENT: Benign, BI-RAD 2 RECOMMENDATION: Routine screening mammogram of both breasts in 1 year. Patient should continue monthly self breast exams. A negative report should not preclude additional follow up of suspicious palpable abnormalities.
== END | disposition home or self-care (01) ==
LOC: RADMAMWWP 09:56
PROVIDERS: ATTEND Family Medicine
DX: R92.8 Other abnormal and inconclusive findings on diagnostic imaging of breast (principal); Z80.3 Family history of malignant neoplasm of breast
CPT/HCPCS: 77066; G0279; 77062

== ENCOUNTER → 2021-05-02 | Outpatient (CLI) | payer MEDICARE, OTHER ==
[2021-05-02 12:57] VITALS: BP 148/86; PULSE 68; RESP 16; TEMP 98.5
== END | disposition home or self-care (01) ==
LOC: PROCWHC3 12:39
PROVIDERS: ATTEND Internal Medicine
DX: M81.0 Age-related osteoporosis without current pathological fracture (principal)
CPT/HCPCS: 96372; J0897

== ENCOUNTER → 2022-05-28 | Outpatient (CLI) | payer MEDICARE, OTHER ==
[2022-05-28 14:08] VITALS: BP 163/96; PULSE 73; RESP 16; TEMP 98.2
== END ==
LOC: PROCWHC3 13:58
PROVIDERS: ATTEND Internal Medicine
DX: M81.0 Age-related osteoporosis without current pathological fracture (principal); Z88.8 Allergy status to other drugs, medicaments and biological substances; Z88.2 Allergy status to sulfonamides; Z88.4 Allergy status to anesthetic agent
CPT/HCPCS: 96372; J0897

== ENCOUNTER → 2022-11-29 | Outpatient (CLI) | payer MEDICARE, OTHER ==
[2022-11-29 15:12] VITALS: BP 125/83; PULSE 72; RESP 15; TEMP 98.6
== END ==
LOC: PROCWHC3 14:34
PROVIDERS: ATTEND Internal Medicine
DX: M81.0 Age-related osteoporosis without current pathological fracture (principal)
CPT/HCPCS: 96372; J0897

== ENCOUNTER → 2023-06-26 | Outpatient (CLI) | payer MEDICARE, OTHER ==
[2023-06-26] MEDS: DENOSUMAB 60 MG/ML 1 ML SYRINGE SQ NR (14:06)
[2023-06-26 14:30] VITALS: BP 113/71; PULSE 80; RESP 16; TEMP 98.1
== END ==
LOC: PROCWHC3 13:41
PROVIDERS: ATTEND Internal Medicine
DX: M81.0 Age-related osteoporosis without current pathological fracture (principal)
CPT/HCPCS: 96372; J0897

== ENCOUNTER → 2024-01-07 | Outpatient (CLI) | payer MEDICARE, OTHER ==
[2024-01-07] MEDS: DENOSUMAB 60 MG/ML 1 ML SYRINGE SQ NR (14:05)
[2024-01-07 14:10] VITALS: RESP 16; TEMP 98.3
[2024-01-07 14:22] VITALS: BP 160/92; PULSE 80
== END ==
LOC: PROCWHC3 13:47
PROVIDERS: ATTEND Internal Medicine
DX: M81.0 Age-related osteoporosis without current pathological fracture (principal)
CPT/HCPCS: 96372; J0897

== ENCOUNTER → 2024-07-24 | Outpatient (CLI) | payer MEDICARE, OTHER ==
[2024-07-24 12:50] VITALS: BP 129/81; PULSE 75; RESP 16; TEMP 98.5
[2024-07-24] MEDS: DENOSUMAB 60 MG/ML 1 ML SYRINGE SQ NR (12:50)
== END ==
LOC: PROCWHC3 12:13
PROVIDERS: ATTEND Internal Medicine
DX: M81.0 Age-related osteoporosis without current pathological fracture (principal)
CPT/HCPCS: 96372; J0897